=== PATIENT | male | born 1965 | race Caucasian/White ===

== ENCOUNTER → 2022-10-20 07:52 | Outpatient (REF) | payer OTHER, SELFPAY | LOC: WOUND 07:52 | PROVIDERS: ATTENDING PHYSICIAN Surgery; REFERRING PHYSICIAN Family Medicine | DX: L97.812 Non-pressure chronic ulcer of other part of right lower leg with fat layer exposed (principal); S81.03 Puncture wound without foreign body of knee; F19.10 Other psychoactive substance abuse, uncomplicated; F15.10 Other stimulant abuse, uncomplicated; K02.9 Dental caries, unspecified; X58.XXXS Exposure to other specified factors, sequela | CPT/HCPCS: 11042; 99202; 99204 ==

== ENCOUNTER 2023-09-19 21:40 | Emergency (ER) | payer OTHER, SELFPAY ==
[2023-09-19 21:44] VITALS: BP 122/78
[2023-09-19 22:19] VITALS: BMI 28.7
[2023-09-19 22:24] VITALS: BP 108/63
--- NOTE | 2023-09-20 00:25 | ED.MUSCINJ ---
HPI-Injury
General
Chief Complaint: Musculo-Skeletal Complaint
Source: patient
Exam Limitations: none
Time Seen by Provider: 09/19/23 22:12
Nursing documentation reviewed up to this point in time: agreed with
History of Present Illness-Injury
Is this injury a work related problem?: No
Is pt an associate of [facility]?: No
Initial Injury comments:
Patient states he tripped and fell on Thursday. Denies hitting his head. OCmplains of paint to left lat ankle and left knee. Brought self to ED for eval
Past History
Past History
ED Past Medical History: Other (IV methamphetamine abuse, cellulitis right lower extremity) and Other ([place] for PrEP)
ED Past Surgical History: Orthopedic (Arthroscopy Left knee 1992)
Social History
Tobacco: Former smoker
Alcohol: Occasional
Drug: IVDA (IV methamphetamine abuse)
Personal: Single (Common law marriage)
Living: alone
Employment: Employed
Family History
Family History: Other (Noncontributory)
Review of Systems
Review of Systems
Allergies reviewed?: Yes
All Other Systems: ROS reviewed and negative except as documented in HPI and ROS
Constitutional: Reports no symptoms
Musculoskeletal: Reports joint pain (Pain to left knee and left ankle.)
Skin: Reports no symptoms
Neurological: Reports no symptoms
Psychiatric: Reports no symptoms
Musculoskeletal Injury Exam
Musculoskeletal Injury Exam
Left Lateral Ankle:
Pain with Movement?: Moderate
Tender to palpation?: Moderate
Soft tissue swelling?: Mild
External deformity and angulation?: None
Joint effusion?: None
Contusion?: None
Hematoma-local bleeding into tissue?: None
Strain- Sprain- Tear (Connective tissue injury)?: Moderate
Crepitus with movement?: No
Joint instability?: No
Malalignment/deformity?: No
Range of motion: Limited
Distal skin color and temperature: normal-warm & good color
Capillary Refill: normal
Normal distal neurovascular exam?: Yes
Peripheral Pulses: posterior tibial (left): 3+ and dorsalis pedis (left): 3+
Left Knee:
Pain with Movement?: Mild
Tender to palpation?: Mild
Soft tissue swelling?: None
External deformity and angulation?: None
Joint effusion?: None
Contusion?: Moderate
Hematoma-local bleeding into tissue?: None
Strain- Sprain- Tear (Connective tissue injury)?: None
Crepitus with movement?: No
Joint instability?: No
Malalignment/deformity?: No
Range of motion: Full
Distal skin color and temperature: normal-warm & good color
Capillary Refill: normal
Normal distal neurovascular exam?: Yes
Phy Exam
General Physical Exam
General Presentation: well appearing and no apparent distress
General age: appears stated age
General Skin: warm and dry
General Habitus: normal
General Mental: alert
General Hydration: appears well hydrated
Musculoskeletal Exam
Musculoskeletal Exam: neuro vasc intact (No tenderness base of 5th, proximal tib fib. Achilles intact.)
Skin Exam
Skin Exam: normal color, warm/dry and no rash
Psychiatric Exam
Psychiatric Exam: normal mood/affect
Injury Course
Orders/Labs/Results
Orders:
Orders
09/19/23 21:48
CR Ankle - Left Min 3 Views Urgent
Comment:
Reason For Exam: twisted, injury
CR Knee - Left 4 Or More View* Urgent
Comment:
Reason For Exam: injury, pain
09/19/23 22:41
Ortho Boot Left- Treatment ONCE
Short or tall?: Tall
*Radiology
Radiology exam reviewed: radiology read reviewed
*Pulse Oximetry
Patient hypoxic: no
*Critical Care Note
Total Time (30-74mins, 75-104mins- exclusive of procedures): Not Applicable
ED Attending Note
-
Portions of this chart may have been created with voice recognition software.� Occasional wrong word or��sound alike� substitutions may have occurred due to the inherent limitations of voice recognition software.
Discharge Plan
Departure
Patient Disposition: Home (Routine Discharge)
Date of Disposition: 09/19/23
Time of Disposition: 22:41
Patient with high blood pressure during this ER visit?: No
Condition: Good
Covid-19: Not Applicable
Discharge Problem:
Ankle sprain, Knee sprain
Instructions: Ibuprofen, Using Cold for Pain, Ankle Sprain ED
Prescriptions:
No Action
mupirocin 2 % Ointment
1 applic topical DAILY Qty: 22 1RF
Rx Instructions:
Right arm
Dakin's Solution 0.125 % Solution
1 applic topical DAILY Qty: 473 0RF
doxycycline hyclate 100 mg Capsule
100 mg PO Q12 Qty: 20 0RF
oxycodone-acetaminophen 5-325 mg Tablet
1 tab PO Q4HPRN PRN (Reason: severe pain) Qty: 20 0RF
Referrals:
Mykel Bravo, [Family Provider] -
Jaspal Stratton MD [Active] - None (Follow up if your symptoms do not improve over the next week)
Interventions
Interventions:
*Risk Screen - Suicide Last Done: 09/19/23 21:44
*General Assessment Last Done: 09/19/23 21:44
*Neglect/Abuse Screening Last Done: 09/19/23 21:44
ED- Fall Risk Assessment Last Done: 09/19/23 22:21
*ED COVID-19 Vaccine History Last Done: 09/19/23 22:21
*Nursing Disposition Last Done: 09/19/23 23:19
ED-Musculoskeletal Assessment Last Done: 09/19/23 22:21
Discharge Date and Time
Discharge Date/Time: 09/19/23 23:20
Print Language: WALLISIAN
== END 2023-09-19 23:20 | disposition home or self-care (01) ==
LOC: EMR 21:40
PROVIDERS: EMERGENCY PHYSICIAN Emergency Medicine; FAMILY PHYSICIAN Family Medicine
DX: S93.402A Sprain of unspecified ligament of left ankle, initial encounter (principal); S83.92XA Sprain of unspecified site of left knee, initial encounter; W01.0XXA Fall on same level from slipping, tripping and stumbling without subsequent striking against object, initial encounter; Z87.891 Personal history of nicotine dependence
CPT/HCPCS: 99283; 73564; 73610

== ENCOUNTER 2024-01-16 03:37 | Inpatient (IN) | payer OTHER, SELFPAY ==
[2024-01-15 23:42] VITALS: BP 113/48
[2024-01-15 23:43] VITALS: BP 113/48
[2024-01-16] VITALS (38 sets, daily range): BP systolic 76–110; BP diastolic 48–73; BMI 27.3
[2024-01-16] MEDS: NSS 1000 IV ×2 (00:35→02:45)
[2024-01-16] MEDS: TORADOL 15 MG IV (00:47)
[2024-01-16 01:04] LABS: ALT (SGPT) 44 U/L (0-50); AST (SGOT) 58 U/L (17-59); Albumin 3.5 g/dl (3.5-5.0); Alkaline Phosphatase 82 U/L (38-126); Blood Urea Nitrogen 16 mg/dl (9-20); Calcium 8.4 mg/dl (8.4-10.2); Carbon Dioxide 23 mmol/L (22-30); Chloride 99 mmol/L (98-107); Estimated Creatinine Clearance 103 ml/min; Glucose 102 mg/dl (70-99); Potassium 3.8 mmol/L (3.5-5.1); Sodium 134 mmol/L (135-145); Total Bilirubin 0.4 mg/dl (0.2-1.3); Total Protein 6.2 g/dl (6.3-8.2); eGFR > 60.00
[2024-01-16 01:06] LABS: COVID-19 Antigen Negative (Negative)
[2024-01-16 01:09] LABS: Lactic Acid 1.1 mmol/L (0.7-2.0)
[2024-01-16 01:15] LABS: Troponin I < 0.012 ng/ml
[2024-01-16 01:21] LABS: Absolute Neutrophils -Man Diff 1.9 10^3/uL (1.4-6.5); Atypical Lymphocytes 7 %; Band Neutrophils 3 % (0-3); Hematocrit 35.5 % (39.0-52.0); Hemoglobin 12.7 g/dL (13.0-18.0); Lymphocytes 16 % (20-51); Mean Corp Hgb Conc. 35.8 g/dL (33.0-37.0); Mean Corpuscular Hgb 30.8 pg (27.0-31.0); Mean Corpuscular Volume 86.2 fL (80.0-94.0); Mean Platelet Volume 10.3 fL (7.4-10.4); Monocytes 4 % (2-9); Normal RBC Morphology Yes; Platelet Count 112 10^3/uL (130-400); Platelets Checked Yes; Red Blood Cell Count 4.12 10^6/uL (4.70-6.10); Red Cell Dist. Width 13.1 % (11.5-14.5); Segmented Neutrophils 70 % (42-75); White Blood Cell Count 2.7 10^3/uL (4.8-10.8)
[2024-01-16 01:22] LABS: Total Cells Counted 100
--- NOTE | 2024-01-16 01:30 | ED.GENMED ---
History of Present Illness
General
Chief Complaint: Fever
Source: patient
Exam Limitations: none
Time Seen by Provider: 01/15/24 23:56
Nursing documentation reviewed up to this point in time: agreed with
History of Present Illness
History of Present Illness:
Patient to ED with complaint of abdominal pain, headache, tingling in arms, pain to dorsum of both feet, poor appetite. States symptoms started approx 1 week ago. Denies any sick contacts. Temp on arrival 101. History of IVDA. Denies any recent
use. Brought to ED via EMS for eval.
Past History
Past History
ED Past Medical History: Other (IV methamphetamine abuse, cellulitis right lower extremity) and Other ([place] for PrEP)
ED Past Surgical History: Orthopedic (Arthroscopy Left knee 1992)
Social History
Tobacco: Former smoker
Alcohol: Occasional
Drug: IVDA (IV methamphetamine abuse)
Personal: Single (Common law marriage)
Living: alone
Employment: Employed
Family History
Family History: Other (Noncontributory)
Review of Systems
Review of Systems
Allergies reviewed?: Yes
All Other Systems: ROS reviewed and negative except as documented in HPI and ROS
Constitutional: Reports fever and fatigue
EENT: Reports no symptoms
Respiratory: Reports no symptoms
Cardiac: Reports no symptoms
ABD/GI: Reports abdominal pain, nausea and anorexia
Musculoskeletal: Reports other (Pain to dorsum of both feet)
Skin: Reports no symptoms
Neurological: Reports headache
Psychiatric: Reports no symptoms
Phy Exam
General Physical Exam
General Presentation: mild distress
General age: appears older than age
General Skin: warm and dry
General Habitus: normal
General Mental: alert
General Hydration: dry mucous membranes
Cardiovascular Exam
Cardiovascular Exam: regular rate/rhythm and no edema
Pulmonary Exam
Pulmonary Exam: lungs clear and no respiratory distress
Gastrointestinal Exam
Gastrointestinal Exam: normal bowel sounds, soft, no organomegaly, non distended and no cva tenderness
Palpation: generalized: Mild tenderness
Neurological Exam
Neurological Exam: alert, oriented x3, CN II-XII intact, no motor deficits, no sensory deficits and speech normal
Musculoskeletal Exam
Musculoskeletal Exam: full ROM, neuro vasc intact and other
Skin Exam
Skin Exam: normal color, warm/dry and no rash
Psychiatric Exam
Psychiatric Exam: normal mood/affect
Sepsis
Sepsis Screening
Sepsis Assessment: Sepsis
Sepsis Screen
Sepsis Screen: Sepsis
Date: 01/16/24
Time: 22:27
Course
Orders/Labs/Results
Orders:
Orders
01/15/24 23:45
Complete Blood Count/With Diff Urgent
Comprehensive Metabolic Panel Urgent
Troponin I Urgent
01/15/24 23:46
EKG- Treatment ONCE
01/16/24 00:20
0.9% Sodium Chloride 1000 ml [Nss] 1,000 ml IV BOLUS
01/16/24 00:21
Ketorolac [Toradol] 15 mg IV NOW STA
01/16/24 00:36
COVID-19 Antigen Urgent
Source: Nasal Swab
Lactic Acid Urgent
Manual Differential Urgent
Influenza A+B Rapid Molecular Urgent
LEO Source: Nasal Swab
Specimen Description:
01/16/24 00:39
CT Abd/pelvis W Iv Cont Urgent
Comment:
Reason For Exam: diffuse pain, vomiting
01/16/24 01:25
CR Chest - 2 Views Urgent
Comment:
Reason For Exam: fever, cough
01/16/24 01:26
Acetaminophen 1000MG/100Ml [Ofirmev] 1,000 mg in 100 ml IV ONCE
Acetaminophen IV Indication:: ED Narcotic Naive Pt-ONCE
01/16/24 02:24
Blood Culture Urgent
LEO Source: Blood/Venous
Specimen Description:
01/16/24 02:45
0.9% Sodium Chloride 1000 ml [Nss] 1,000 ml IV BOLUS
01/16/24 02:52
Procalcitonin Urgent
PCT Algorithmm Indication: Sepsis
01/16/24 02:54
Blood Culture Urgent
LEO Source: Blood/Venous
Specimen Description:
01/16/24 03:06
Admit/Transfer Patient As Directed
Co-Sign Provider:
Level of Care: Inpatient admission
Assign to:: IMU- Intermediate Care
Physician / Group: Andrea
Diagnosis: Fever, Sepsis
Reason for Hospitalization: Fever, Sepsis
Expected length of stay greater than two midnights?: Yes
ELOS- Estimated Length of Stay in days: 4
I certify the patient meets the requirements for IP care: Yes
PRN Pain Medication Management As Directed
May give lesser potent ordered pain med per pt: Yes
preference::
Protocol:: Medication orders for pain may be administered in a
manner that supports deferring to patient preference
when the pt is:
- Requesting an ordered lesser potent pain medication.
Least to most potent pain medications are defined
as: acetaminophen < NSAID < tramadol < opioids
(morphine, oxycodone, hydromorphone).
- Requesting a lesser dose of the same medication IF
ORDERED.
- Requesting a less intrusive route of administration
if both routes are prescribed by the provider (PO <
IV).
01/16/24 03:07
Code Status As Directed
Resuscitation Status: Full Code
01/16/24 03:13
0.9% Sodium Chloride 500 ml [Nss] 500 ml IV BOLUS
01/16/24 03:56
NORepinephrine 4 MG/250 ML [Levophed] 4 mg in 250 ml IV PER PROTOCOL
Initial dose in mcg/min, then titrate:: 4
Titrate to keep:: MAP > 65 mmHg
Titrate by mcg/min:: 1-2 mcg/min
Frequency of titrations (minutes):: 5
Maximum dose in ICU in mcg/min:: 30
Maximum dose in IMU in mcg/min:: 8
Maximum dose in IVU in mcg/min:: 4
Begin to taper infusion when:: Remained at goal for 4hrs
Taper by mcg/min:: 1-2 mcg/min
Frequency of taper (minutes) if patient maintains goal:: 30
Taper to off?: Yes
If infusion off & no longer maintaining goal:: Contact Provider
01/16/24 04:00
Cefepime HCl [Maxipime] 2,000 mg IV Q8H
Lactated Ringers [Lr] 1,000 ml IV 150 mls/hr
01/16/24 05:32
Acetaminophen [Tylenol] 650 mg PO Q4HPRN PRN
HYDROmorphone [Dilaudid] 0.5 mg IV Q4HPRN PRN
Ondansetron Injectable [Zofran] 4 mg IV Q6HPRN PRN
01/16/24 05:32
Echo 2D MMode Doppler [Echo 2D MMode Color/Doppler] Routine
Reason for Study: IVDA, Bacteremia
Consult Notification Routine
Specialty to Notify: Infectious Disease
Date consulting provider notified: 01/16/24
Time consulting provider notified: 07:15
Notified:: Other
Comment: tiger text
INFECTIOUS DISEASE CONSULT Routine
Consulting Provider: Radha Holm
Was physician already notified: No
Reason for consult: Fever, IVDA
Stool Culture Routine
LEO Source: Feces/Stool
Specimen Description:
Activity As Directed
Activity Level: Ambulate
With Assistance
Bladder Scan As Directed
Follow Bladder Retention/Intermittent Cath Algorithm?: Yes
PRN if no void in __ hours: 6
Frequency: Per Retention Algorithm
If Bladder Scan Result >: 400
then:: Straight cath
EKG with chest pain [ECG as needed] As Directed
ECG as needed for:: Chest Pain
I/O [Intake/ Output] As Directed
Frequency: Per unit guidelines
Orthostatic Vital Signs As Directed
Orthostatic VS Frequency: BID
Pneumatic Compression Sleeves As Directed
Type: Knee high
Straight Cath As Directed
Frequency: Per Retention Algorithm
Additional Instructions: straight cath as needed per acute urinary retention algorithm for 24 hrs
Additional Instructions: for bladder scan greater than 400 mL
Vital Signs As Directed
Frequency: Per unit guidelines
Weight As Directed
Frequency: Daily
Oxygen Therapy [O2 Therapy] [RESP] Routine
Titrate/Wean O2 to maintain O2 sat greater than (%): 94
DX Deep Vein Thrombosis Video Routine
01/16/24 05:40
Complete Blood Count/No Diff IN AM
HIV 4th Generation [HIV Combo] Routine
TSH Reflex To Free T4 Routine
01/16/24 Breakfast
Clear Liquid
At Your Request: Full Participation
Abnormal Lab Results
01/16/24
00:36
WBC 2.7 L 10^3/uL
(4.8-10.8)
RBC 4.12 L 10^6/uL
(4.70-6.10)
Hgb 12.7 L g/dL
(13.0-18.0)
Hct 35.5 L %
(39.0-52.0)
Plt Count 112 L 10^3/uL
(130-400)
Lymphocytes (Manual) 16 L %
(20-51)
Sodium 134 L mmol/L
(135-145)
Glucose 102 H mg/dl
(70-99)
Total Protein 6.2 L g/dl
(6.3-8.2)
01/16/24 00:36
01/16/24 00:36
Vital Signs
Initial and Last Documented VS:
Initial Vital Signs
BP
113/48
01/15/24 23:42
Last Documented Vital Signs
Temp Pulse Resp BP Pulse Ox
98.3 F 74 17 98/66 95
01/16/24 19:00 01/16/24 18:15 01/16/24 18:15 01/16/24 18:00 01/16/24 18:15
MDM/Problems Addressed
Differential Diagnosis Includes:
Patient to ED with complaint of tingling in arms, abdominal pain, nausea, pain to dorsum joby feet, headache. Symptoms started 1 week ago. States he is homeless but has been staying with a friend for the past few nights. History of IVDA, last use
'days ago'. No evidence of cellulitis, abscess noted on exam. Temp on arrival to ED 101. Given IV toradol and ofirmev. Hypotensive, fluid resuscitation continuing. Labs reviewed. Pancytopenia noted. Lactic normal. Blood cultures obtained,
results pending. CXR NAD. CT abd/pelvis Vision read: 'No specific findings to accoun for patients abd. pain'. Tiny low density lesions noted on spleen, most likely small cysts, less likely microabscesses or other masses. He reports improvement in
comfort after toradol and ofirmiv. Case discussed with Dr. Yi. In light of his IVDA history will admit for fever of unknown origing, SERS, pancytopenia. Will hold off on antibiotics pending culture result.
*Radiology
Radiology exam reviewed: radiology read reviewed
*Pulse Oximetry
Patient hypoxic: no
*Critical Care Note
Total Time (30-74mins, 75-104mins- exclusive of procedures): Not Applicable
ED Attending Note
-
Portions of this chart may have been created with voice recognition software.� Occasional wrong word or��sound alike� substitutions may have occurred due to the inherent limitations of voice recognition software.
Discharge Plan
Departure
Patient Disposition: Admit
Date of Disposition: 01/16/24
Time of Disposition: 02:30
Presentation/result/management discussed w/ accepting MD/DO: Hospitalist
Patient with high blood pressure during this ER visit?: No
Condition: Fair
Covid-19: Negative COVID-19
Discharge Problem:
Fever of unknown origin, Pancytopenia
Interventions
Interventions:
*General Assessment Last Done: 01/15/24 23:43
*Neglect/Abuse Screening Last Done: 01/15/24 23:43
ED- Fall Risk Assessment Last Done: 01/15/24 23:43
*ED COVID-19 Vaccine History Last Done: 01/15/24 23:43
*Nursing Disposition Last Done: 01/16/24 05:32
ED- Neurological Assessment Last Done: 01/15/24 23:50
ED-Skin Assessment Last Done: 01/15/24 23:50
Discharge Date and Time
Discharge Date/Time: 01/16/24 05:00
[2024-01-16] MEDS: OFIRMEV 100 IV (02:13)
--- NOTE | 2024-01-16 03:13 | HPS.HSE ---
Family Physician
-
Family Physician: PHYSICIAN PRIVATE
Chief Complaint
-
Chills, Nausea, Abd Pain
History of Present Illness
Patient is a 58y M with PMH significant for IVDA and prior MRSA skin infection who presents to ED complaining of chills, nausea, abdominal pain and paresthesias for about one week. Patient described occasional shaking chills at home. He has not
checked his temperature. He reports diffuse abdominal discomfort and nausea. No emesis, watery diarrhea, bloody stools or urinary symptoms.
Patient denies any other focal complaints including cough, dyspnea, etc.
He denies any recent travel or sick contacts.
Patient is a chronic substance abuser and admits to using methamphetamine by both inhaled and IV / skin popping methods.
His last such use was about 1 week ago.
Medical History
Past Medical History
Past Medical History: Reports Other
Additional Past Medical History:
Substance Use Disorder
MRSA Infection
Past Surgical History: Reports Other
Additional Past Surgical History:
Left Knee Arthroscopy
I&D RLE (MRSA Abscess)
Social History
Tobacco: Former Smoker (Quit smoking 14 years ago. Approx 20 pack years total use.)
Alcohol: Occasional (Rarely.)
Drug: Other (Occasional use of methamphetamine (inhaled and IV / skin popping) - last use 1 week ago.)
Family History
Family History: Other (Mother: DM)
Allergies / Home Medications
Allergies reflects when Allergies were last updated in [facility].
Home Medications with original date entered in [facility]
Allergy/Medication List:
Allergies
Allergy/AdvReac Type Severity Reaction Status Date / Time
No Known Allergies Allergy Verified 01/16/24 00:00
Home Medications
No Meds [No Current Medications] 01/16/24
Review of Systems
-
History Source: Patient
A 12 point ROS was completed and negative except as noted: Yes
Constitutional: Reports Fatigue and Chills
EENT: Denies Sore Throat or Runny Nose
Respiratory: Denies Cough or Trouble Breathing
Cardiac: Denies Chest Pain or Palpitations
Abdomen/GI: Reports Abdominal Pain, Nausea, Diarrhea and Anorexia; Denies Vomiting, Constipated, Bloody Stools or Black Stools
: Denies Dysuria, Frequency or Flank Pain
Musculoskeletal: Denies Joint Pain or Edema
Neurological: Denies Dizzy or Headache
Psych: Denies Depression or Anxiety
Physical Exam
Vital Signs
Vital Signs
Temp Pulse Resp BP Pulse Ox
101.0 F H 75 11 85/57 96
01/15/24 23:43 01/16/24 03:01 01/16/24 03:01 01/16/24 03:01 01/16/24 03:01
Physical Exam
General: Other (58y M in no acute distress.)
HEENT: Moist mucous membranes and PERRLA
Respiratory: Other (Scattered rales without wheezes / focal rhonchi.)
Cardiac: S1/S2 and Regular Rhythm; No Murmur
GI: Soft, Non Tender, Non Distended and Normal Bowel Sounds
Musculoskeletal: No Clubbing, No Cyanosis and No Edema
Neuro: AO x 3
Laboratory Results
-
01/16/24 00:36
01/16/24 00:36
Laboratory Results
Lactic Acid 1.1 mmol/L (0.7-2.0) 01/16/24 00:36
Total Bilirubin 0.4 mg/dl (0.2-1.3) 01/16/24 00:36
AST 58 U/L (17-59) 01/16/24 00:36
ALT 44 U/L (0-50) 01/16/24 00:36
Alkaline Phosphatase 82 U/L (38-126) 01/16/24 00:36
Troponin I < 0.012 ng/ml 01/16/24 00:36
Impression/Plan
-
A/P: Patient is a 58y M with PMH significant for IVDA / substance abuse and prior MRSA infection who presents to ED complaining of chills, nausea and abdominal pain.
Fever / Sepsis
Mild Thrombocytopenia secondary to the above
- Admit for further evaluation and treatment.
- Patient presents with fever to 101 and leukopenia (2.7).
- He is hypotensive in the ED (though it is noted that he 'runs low' based on prior values and patient's own history).
- Continue / complete 30cc/kg sepsis fluid bolus.
- Add pressor support if needed following this to maintain MAP > 65.
- No evident source at this time - though one must suspect bacteremia +/- MRSA given history of IVDA and prior MRSA infection.
- CXR and CT A/P done in the ED are essentially unremarkable.
- COVID and influenza are negative.
- Follow-up results of blood cultures.
- Check Echo.
- Follow fever curve. Monitor for any new / focal symptoms or complaints.
- ID evaluation for additional recommendations.
- Repeat HIV status (was negative here in 09/2022).
Substance Use Disorder
- Chronic methamphetamine use in multiple forms.
- Last use about one week prior to admission.
DVT Prophylaxis: SCDs
Code Status: Full
[2024-01-16] MEDS: NSS 500 IV (03:30)
[2024-01-16 03:32] LABS: Procalcitonin 0.05 ng/ml (0.0-0.25)
[2024-01-16] MEDS: MAXIPIME 2000 MG IV ×3 (04:15→20:10)
[2024-01-16] MEDS: FLUSH (NSS) 1 FLUSH IV (04:16)
[2024-01-16] MEDS: STERILE WATER FOR INJECTION 10 ML IV ×3 (04:17→20:10)
[2024-01-16] MEDS: LR 1000 IV ×2 (04:23→13:16)
[2024-01-16] MEDS: LEVOPHED 250 IV (05:42)
[2024-01-16 05:56] LABS: Hematocrit 30.8 % (39.0-52.0); Hemoglobin 10.7 g/dL (13.0-18.0); Mean Corp Hgb Conc. 34.7 g/dL (33.0-37.0); Mean Corpuscular Hgb 30.3 pg (27.0-31.0); Mean Corpuscular Volume 87.3 fL (80.0-94.0); Mean Platelet Volume 9.8 fL (7.4-10.4); Platelet Count 82 10^3/uL (130-400); Red Blood Cell Count 3.53 10^6/uL (4.70-6.10); Red Cell Dist. Width 13.3 % (11.5-14.5); White Blood Cell Count 1.9 10^3/uL (4.8-10.8)
[2024-01-16] MEDS: VANCOCIN 540 MG IV (06:07)
[2024-01-16 06:17] LABS: ALT (SGPT) 37 U/L (0-50); AST (SGOT) 45 U/L (17-59); Albumin 2.7 g/dl (3.5-5.0); Alkaline Phosphatase 62 U/L (38-126); Blood Urea Nitrogen 13 mg/dl (9-20); Calcium 7.2 mg/dl (8.4-10.2); Carbon Dioxide 21 mmol/L (22-30); Chloride 104 mmol/L (98-107); Direct Bilirubin 0.2 mg/dl (0.0-0.4); Estimated Creatinine Clearance 118 ml/min; Glucose 91 mg/dl (70-99); Potassium 3.6 mmol/L (3.5-5.1); Sodium 136 mmol/L (135-145); Total Bilirubin 0.4 mg/dl (0.2-1.3); Total Protein 5.2 g/dl (6.3-8.2); eGFR > 60.00
[2024-01-16 06:44] LABS: TSH Reflex To Free T4 2.85 uIU/ml (0.47-4.68)
--- NOTE | 2024-01-16 06:55 | PTCARENOTE ---
Patient received in room 3372 via stretcher. The patient is drowsy, AAOx3 and able to make his needs known. Complains of numbness to his left hand that is 'worse' than before. Pt stated that the numbness is new to this admission. Complains of 6 or 7
abdominal pain that feels cramps/aching. The patient stated that he typically doesn't take medications. Plan of care for the remainder of the shift reviewed with the patient. Admission assessment as documented. Patient stated that his living
situation is 'up in the air' and 'complicated' when asked about his emergency contact. Pupils are +2 and reactive. MAEx4- with good strength on all extremities. Pulses are palpable. Sinus rhythm on the monitor. Levophed initiated at 2 mcg/min (7.5
ml/hr) for MAP 62. Clear breath sounds throughout. Shallow respirations. SpO2 at 95% on room air. Bowel sounds are audible. Pt denies need to void. The patient has a pencil sized healing scabs to his left great toe, callus on the bottom of the left
foot, and dried skin to his right lateral knee. KUMAR Solano paged at the bedside regarding the patient's numb hand. All needs are within reach.
--- NOTE | 2024-01-16 07:45 | W.PN.HOSP.TC ---
Today's Communication/Plan
-
Titrate pressors
Advance diet as tolerated
Check lipase
UDS
Continue antibiotics
Await cultures
ID consult
Assessment / Plan
Assessment / Plan
Gen-AAOx3, NAD
HEENT-NC, AT, anicteric, clear oral mm
Neck-supple
CV-reg, no M, +S1/S2
Lungs-clear B/L
Abd-soft, nontender, mildly distended
Ext-no edema
Musculoskeletal-no cyanosis, clubbing
Skin-warm and dry
Neuro-grossly non-focal
Psych-calm, cooperative
Septic shock -source unclear but rule out bacteremia related to IV drug abuse. Blood cultures pending, on empiric broad-spectrum antibiotics, cefepime and vancomycin. ID consulted. On low-dose Levophed. Continue IV fluids. Chest x-ray and CT
abdomen/pelvis completed, report pending. No localizing signs or symptoms of infection currently.
Check lipase level.
Substance abuse -known history of IV drug abuse, inhalation use of methamphetamine. Check UDS.
Will need warm handoff consult when medically stable.
Pancytopenia -etiology unclear but could be due to sepsis, etc. HIV pending.
Hyponatremia -present on admission, improved.
Full code
Anticipated Discharge: > 48 hours
Subjective/Interval History
-
Date of Service: January 16, 2024
Patient seen and examined. Complaining of abdominal pain. Complaining of thirst and hunger.
Objective Data
-
Labs:
Laboratory Results
01/16/24 01/16/24
00:36 05:40
WBC 2.7 L 1.9 L*
Hgb 12.7 L 10.7 L
Hct 35.5 L 30.8 L
Plt Count 112 L 82 L D
Sodium 134 L 136
Potassium 3.8 3.6
Chloride 99 104
Carbon Dioxide 23 21 L
BUN 16 13
Creatinine 0.8 0.7
Glucose 102 H 91
Calcium 8.4 7.2 L
Total Bilirubin 0.4 0.4
AST 58 45
ALT 44 37
Alkaline Phosphatase 82 62
Vital Signs:
Vital Signs
Temp Pulse Resp BP Pulse Ox
99.0 F 73 13 81/58 96
01/16/24 07:00 01/16/24 05:17 01/16/24 05:17 01/16/24 05:17 01/16/24 05:17
Review of Systems
-
History Source: Patient
All other systems: Reviewed and negative
[2024-01-16] MEDS: NSS (PRESERVATIVE FREE) 10 ML IV (08:15)
[2024-01-16] MEDS: PROTONIX IV 40 MG IV (08:15)
[2024-01-16 08:23] LABS: Lipase 80 U/L (23-300)
--- NOTE | 2024-01-16 09:39 | PHA.VAN.IN ---
Assessment
- Assessment
Renal Function: Appears similar to baseline
Maximum Temperature: 101 - 01/14 23:43
Concomitant Antimicrobials: cefepime
- Previous Dosing Experience
Previous Regimen: dosed by randoms level 09/2022 due to elevated SCr
Patient's SCR is: Decreased compared to previous dosing experience
Patient's weight is: Similar to previous dosing experience
AUC Dosing Plan
- Dosing Variables
Dosing Weight (kg): 84
Dosing CrCl (ml/min): 100
Vd coefficient (L/kg): 0.7
- Empiric Dosing
Initial / Loading Dose: 2000 mg - 01/15 ~0600
Maintenance Regimen: 1000 mg q12h - to start 1800 tonight
Estimated AUC (mcg*h/mL): 406
Estimated Peak (mcg*h/mL): 26.2
Estimated Trough (mcg/ml): 10
Estimated Half Life (H): 7.9
- Monitoring
No levels ordered at this time: consider levels when pt nears steady state
Pharmacokinetics Vancomycin I
- -
Patient Age: 58
Patient Sex: Male
Vancomycin Day #: 1
Indication: Bacteremia
Requesting Provider: Andrea
Height / Weight:
Height 5 ft 9 in
Actual Weight 83.8 kg
Pertinent Past Medical History: IVDA
- Vital Signs / Lab Results
Temp Pulse Resp BP Pulse Ox
99.0 F 74 16 89/62 96
01/16/24 07:00 01/16/24 08:00 01/16/24 08:00 01/16/24 08:00 01/16/24 08:00
Lab Results - Hematology
01/16/24 01/16/24
00:36 05:40
WBC 2.7 L 1.9 L*
Band Neutrophils 3
Lab Results - Chemistry
01/16/24 01/16/24
00:36 05:40
BUN 16 13
Creatinine 0.8 0.7
Estimated Creat Clear 103 118
Albumin 3.5 2.7 L
01/16/24
00:36
Lactic Acid 1.1
Microbiology Results
01/16/24 00:36 Influenza Types A & B (DEMETRA) - Final
Nasal Swab Negative for Influenza A & B, NAAT
Negative results must be combined with clinical observations
and patient history.
Nucleic Acid Amplification test (NAAT)performed on the
[employer] platform.
[2024-01-16 10:32] LABS: Amphetamines Negative (Negative); Barbiturates Negative (Negative); Benzodiazepines Negative (Negative); Buprenorphine Negative (Negative); Cocaine Negative (Negative); Marijuana Negative (Negative); Methadone Negative (Negative); Methamphetamines Positive (Negative); Opiates Negative (Negative); Phencyclidine Negative (Negative); Tricyclic Antidepressants Negative (Negative)
[2024-01-16 11:07] LABS: Fentanyl, Urine Negative (Negative)
--- NOTE | 2024-01-16 12:12 | CON.ID ---
Consultation
-
Date/Time Consultation Requested: January 16, 2024 0532
Date/Time Consultation Performed: January 16, 2024 1215
Requesting Provider: Dr. Andrea Demarco
Performing Provider: Dr. Radha Holm
Reason for Consultation: Fever, IV drug user
Chief Complaint / Past History
Chief Complaint
Fever
History of Present Illness
58-year-old male with history of IV drug use/skin popping methamphetamine last use about 2 weeks ago who presented to the ER last night due to 1 week history of fever. He reports not feeling well for about a week with his subjective fevers, chills,
diffuse abdominal pain and nausea. He feels weak. No vomiting or diarrhea. No urinary symptoms. Has mild headache. No sinus congestion or sore throat. Chronic back pain stable. No ill contacts. No travel. No known tick exposure. He has 2
dogs at home. In the ED temperature 101, leukopenia white count 2.7, thrombocytopenic. Blood cultures obtained in the was started on vancomycin and cefepime. He feels slightly improved today. No wounds. He does not share needles. He always
uses fresh needle and wipe his skin with alcohol prior to skin popping. He does not lick the needle.
Past History
Additional Past Medical History:
IVDU methamphetamine (skin popper)
History of MRSA right knee wound infection status post debridement 2022
left knee arthroscopic surgery
Allergy History:
No Known Allergies Allergy (Verified 01/16/24 00:00)
Medications Reviewed: Yes
Current Antibiotics:
Cefepime
Vancomycin
Social History
Tobacco: Former Smoker
Alcohol: Occasional
Drug: IVDA
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
Family History
Family History: Not Pertinent
Review of Systems
Review of Systems
General: Fever, Chills and Change in Appetite
HEENT: Headache; Negative Sinus Problems or Pharyngitis
Cardiovascular: Negative Chest Pain or Dyspnea
Respiratory: Negative Dyspnea or Cough
Gasteroenterology: Nausea; Negative Vomiting or Diarrhea
Genital / Urological: Negative Dysuria or Flank Pain
Endocrine: Weakness and Fatigue
Musculoskeletal: Negative Arthralgias
Neurological: Negative Dizziness
All systems: All other systems were reviewed and were negative
Vital Signs
Temp Pulse Resp BP Pulse Ox
98.5 F 70 15 91/67 99
01/16/24 11:00 01/16/24 11:30 01/16/24 11:30 01/16/24 11:23 01/16/24 11:30
Selected Entries
01/15/24
23:43
Temp 101.0 F H
Physical Exam
Physical Exam
Constitutional: No Acute Distress and Comfortable
Eyes: No Conjunctival Hemorrhage and Sclera Anicteric
Cardiovascular: Regular Rate and S1/S2
Pulmonary: Clear
Gastrointestinal: Soft, Non Tender, Non Distended, Normal Bowel Sounds and Decreased Bowel Sounds
Genito-Urinary: Negative CVA Tenderness
Extremities: Negative Splinter Hemorrhage or Janeway Lesions
Musculoskeletal: Negative Joint Swelling, Joint Effusion or Spinal Tenderness
Neurological: AO x 3; Negative Meningeal Signs
Lab / Diagnostic Study Results
01/16/24 05:40
01/16/24 05:40
Total Counted 100 01/16/24 00:36
Abs Neuts (Manual) 1.9 10^3/uL (1.4-6.5) 01/16/24 00:36
Segmented Neutrophils 70 % (42-75) 01/16/24 00:36
Band Neutrophils 3 % (0-3) 01/16/24 00:36
Lymphocytes (Manual) 16 % (20-51) L 01/16/24 00:36
Lactic Acid 1.1 mmol/L (0.7-2.0) 01/16/24 00:36
Procalcitonin 0.05 ng/ml (0.0-0.25) 01/16/24 02:52
Microbiology Results
Micro:
01/16/24 02:54 Blood Culture - Pending
Blood/Venous
01/16/24 02:24 Blood Culture - Pending
Blood/Venous
01/16/24 00:36 Influenza Types A & B (DEMETRA) - Final
Nasal Swab Negative for Influenza A & B, NAAT
Negative results must be combined with clinical observations
and patient history.
Nucleic Acid Amplification test (NAAT)performed on the
[employer] NOW platform.
01/16/24 CT a/p: No acute findings in the abdomen or pelvis.Hepatic steatosis.Punctate nonobstructing stone in the inferior pole the right kidney.
01/16/24 CXR: neg
Assessment / Plan
# Fever
# Pancytopenia
# IVDU
#MRSA colonized
-CXR neg. CT a/p neg
- await blood cx's
- Tickborne disease work-up: Babesia smear, anaplasma, ehrlichia, lyme serology
- Continue Vancomycin and cefepime for now.
--- NOTE | 2024-01-16 14:26 | PTCARENOTE ---
Rec'd pt at 0700. Pt AAOx3, follows commands, RAMIREZ. IMU status. Monitor SR with PVC/PAC. SBP 80-90's on Levophed 2mcg/min to keep MAP >65. Vdg yellow urine via urinal, UDS sent. Diet advanced to regular, tolerating. No c/o pain.
[2024-01-16 15:24] LABS: HIV Combo Reactive (Negative)
[2024-01-16] MEDS: TYLENOL 650 MG PO (16:01)
--- NOTE | 2024-01-16 16:22 | CHAP ---
Mr. Moore said, 'I'm here,' when I asked how he's doing. He shared thoughts only briefly. Emotional support provided, along with assurance of our on-going availability.
[2024-01-16] MEDS: VANCOCIN 200 IV (18:07)
[2024-01-16] MEDS: LOVENOX SC (18:08)
--- NOTE | 2024-01-16 20:32 | PTCARENOTE ---
Handoff report received from off going RN. Patient received in bed, arouses to verbal command. AAOx3 and able to make his needs known. Plan of care for the shift reviewed with the patient. MAEx4. Sinus rhythm on the monitor. Levophed at 2 mcg/min
for MAP>65. LR at 100 ml/hr.Clear breath sounds. Patient declines mouth care. All needs are within reach. Call de la rosa is at the bedside.
[2024-01-17] VITALS (31 sets, daily range): BP systolic 82–125; BP diastolic 43–73; PULSE 81–90; BMI 27.6
--- NOTE | 2024-01-17 00:22 | PTCARENOTE ---
Patient reassessed. No changes. Remains on Levophed gtt at 2 mcg.
[2024-01-17] MEDS: TYLENOL 650 MG PO ×2 (03:58→19:24)
[2024-01-17] MEDS: MAXIPIME 2000 MG IV (03:58)
[2024-01-17] MEDS: STERILE WATER FOR INJECTION 10 ML IV (03:58)
--- NOTE | 2024-01-17 04:05 | PTCARENOTE ---
Patient reassessed. Tylenol administered for headache. Labs drawn and sent. Patient cleansed with CHG wipes. linens changed. All needs are within reach.
[2024-01-17 04:15] LABS: Hematocrit 32.9 % (39.0-52.0); Hemoglobin 11.4 g/dL (13.0-18.0); Mean Corp Hgb Conc. 34.7 g/dL (33.0-37.0); Mean Corpuscular Hgb 30.6 pg (27.0-31.0); Mean Corpuscular Volume 88.4 fL (80.0-94.0); Mean Platelet Volume 10.1 fL (7.4-10.4); Platelet Count 114 10^3/uL (130-400); Red Blood Cell Count 3.72 10^6/uL (4.70-6.10); Red Cell Dist. Width 13.6 % (11.5-14.5); White Blood Cell Count 3.2 10^3/uL (4.8-10.8)
[2024-01-17 04:39] LABS: ALT (SGPT) 52 U/L (0-50); AST (SGOT) 57 U/L (17-59); Alkaline Phosphatase 74 U/L (38-126); Blood Urea Nitrogen 9 mg/dl (9-20); Calcium 7.8 mg/dl (8.4-10.2); Carbon Dioxide 23 mmol/L (22-30); Chloride 107 mmol/L (98-107); Estimated Creatinine Clearance > 125 ml/min; Glucose 103 mg/dl (70-99); Sodium 138 mmol/L (135-145); Total Bilirubin 0.3 mg/dl (0.2-1.3); Total Protein 5.6 g/dl (6.3-8.2); eGFR > 60.00
[2024-01-17 04:42] LABS: Platelets Checked Yes; Segmented Neutrophils 71 % (42-75)
[2024-01-17 04:43] LABS: Anisocytosis 1+; Atypical Lymphocytes 6 %; Eosinophils 1 % (0-6); Lymphocytes 16 % (20-51); Monocytes 6 % (2-9); Normal RBC Morphology No; Poikilocytosis 1+; Schistocytes Occasional; Total Cells Counted 100
[2024-01-17] MEDS: VANCOCIN 200 IV (06:26)
--- NOTE | 2024-01-17 07:53 | W.PN.HOSP.TC ---
Today's Communication/Plan
-
Await HIV differentiation assay
Await blood cultures
Tickborne disease labs
Wean Levophed off
Assessment / Plan
Assessment / Plan
Gen-AAOx3, NAD
HEENT-NC, AT, anicteric, clear oral mm
Neck-supple
CV-reg, no M, +S1/S2
Lungs-clear B/L
Abd-soft, nontender, mildly distended
Ext-no edema
Musculoskeletal-no cyanosis, clubbing
Skin-warm and dry
Neuro-grossly non-focal
Psych-calm, cooperative
Septic shock -source unclear but rule out bacteremia related to IV drug abuse. 1 out of 2 blood cultures positive for gram-positive cocci in clusters, possibly contamination. Await final results. Continue antibiotics for now. Infectious disease
following. Still on Levophed 1 mcg, wean to off as able. Baseline blood pressure runs low according to patient.
ID sat 12 point serology for tickborne diseases, Babesia smear.
Positive HIV combination assay -will need confirmatory antibody differentiation immunoassay. Did not discuss preliminary test results with patient, need confirmation first.
Substance abuse -known history of IV drug abuse, inhalation use of methamphetamine. Urine drug screen positive for methamphetamines.
Will need warm handoff consult when medically stable.
Pancytopenia -etiology unclear but could be due to sepsis, etc. Counts are slowly improving.
Hyponatremia -present on admission, improved.
Full code
Anticipated Discharge: > 48 hours
Subjective/Interval History
-
Date of Service: January 17, 2024
Patient seen and examined. Less abdominal pain. No complaints.
Objective Data
-
Labs:
Laboratory Results
01/17/24 01/17/24
03:48 03:49
WBC 3.2 L
Hgb 11.4 L
Hct 32.9 L
Plt Count 114 L D
Sodium 138
Potassium 4.0
Chloride 107
Carbon Dioxide 23
BUN 9
Creatinine 0.6 L
Glucose 103 H
Calcium 7.8 L
Total Bilirubin 0.3
AST 57
ALT 52 H
Alkaline Phosphatase 74
Vital Signs:
Vital Signs
Temp Pulse Resp BP Pulse Ox
98.1 F 75 23 99/69 94
01/17/24 07:36 01/17/24 07:30 01/17/24 07:30 01/17/24 07:00 01/17/24 07:30
I&O
01/16/24 01/17/24 01/18/24
06:59 06:59 06:59
Intake Total 4476.3 / 4476.3
Output Total 3875 / 3875
Balance 601.3 / 601.3
Review of Systems
-
History Source: Patient
All other systems: Reviewed and negative
[2024-01-17] MEDS: PROTONIX IV 40 MG IV (07:54)
[2024-01-17] MEDS: NSS (PRESERVATIVE FREE) 10 ML IV (07:54)
--- NOTE | 2024-01-17 08:28 | W.PN.ID1 ---
Date of Service
Date of Service: January 17, 2024
Today's Communication
See below.
Assessment / Plan
# GPC bacteremia 1 of 2 sets
# MRSA colonized
- await identification of GPC clusters in bcx.
-Repeat blood cultures
-Continue Vancomycin for now.
# Pancytopenia
# Mild transaminitis
-Tickborne disease work-up: Babesia smear, anaplasma, ehrlichia, lyme serology pending
- Start empiric doxycycline
-DC cefepime
# Suspect HIV
# IVDU/skin popper
# High risk sexual behavior
- Preliminary HIV screen turned reactive, awaiting confirmation.
(09/29/2022 HIV screen negative).
- Risk factors: Pt is bisexual with multiple partners without barrier protection use. Also IVDU.
- Informed patient of preliminary results, awaiting differentiation/confirmation.
- Ordered HIV viral PCR in am (regardless positive or negative HIV confirmation). Check CD4 count
#Fever - resolving
-CXR neg. CT a/p neg, UA neg
Chief Complaint
-: Fever
Subjective / Review of Systems
Feels the same with malaise, nausea, abdominal pain.
Vital Signs / Physical Exam
Vital Signs
Vital Signs
Temp Pulse Resp BP Pulse Ox
98.1 F 75 23 99/69 94
01/17/24 07:36 01/17/24 07:30 01/17/24 07:30 01/17/24 07:00 01/17/24 07:30
Physical Exam
Constitutional: No Acute Distress and Non-toxic
Eyes: No Conjunctival Hemorrhage and Sclera Anicteric
Cardiovascular: Regular Rate and S1/S2
Pulmonary: Clear
Gastrointestinal: Soft, Non Tender, Non Distended and Normal Bowel Sounds
Genito-Urinary: Negative CVA Tenderness
Extremities: Negative Edema
Neurological: AO x 3
Objective Data
Lab Data
Lab Results
01/17/24 03:49
01/17/24 03:48
Estimated Creat Clear > 125 ml/min 01/17/24 03:48
Lactic Acid 1.1 mmol/L (0.7-2.0) 01/16/24 00:36
Total Bilirubin 0.3 mg/dl (0.2-1.3) 01/17/24 03:48
AST 57 U/L (17-59) 01/17/24 03:48
ALT 52 U/L (0-50) H 01/17/24 03:48
Alkaline Phosphatase 74 U/L (38-126) 01/17/24 03:48
Most recent labs reviewed.
Micro Results:
01/16/24 02:24 Blood Culture - Preliminary
Blood/Venous Positive culture in progress
Gram Stain - Preliminary
01/17/24 03:49 Blood Parasites Smear - Pending
Blood/Venous
01/16/24 02:54 Blood Culture - Preliminary
Blood/Venous No Growth in 24 hours- Final report to follow
01/16/24 00:36 Influenza Types A & B (DEMETRA) - Final
Nasal Swab Negative for Influenza A & B, NAAT
Negative results must be combined with clinical observations
and patient history.
Nucleic Acid Amplification test (NAAT)performed on the
[employer] platform.
01/16/24 CT a/p: No acute findings in the abdomen or pelvis.Hepatic steatosis.Punctate nonobstructing stone in the inferior pole the right kidney.
01/16/24 CXR: neg
[2024-01-17] MEDS: LR IV (08:45)
--- NOTE | 2024-01-17 08:58 | PHA.VAN.FU ---
Vancomycin Assessment / Plan
- Assessment
Renal Function: Stable
WBC's are: Stable
In the past 24 hrs, patient has been: Afebrile
Concomitant Antimicrobials: PO doxycycline
- Dosing Plan
Continue: vancomycin 1000 mg q12h - first dose 01/15 1800
- Monitoring Plan
No level(s) ordered at this time: consider levels after 01/17 1800 dose is still on
- Follow Up
Pharmacy will continue to follow.
Vancomycin Follow UP
- -
Patient Age: 58
Patient Sex: Male
Vancomycin Day #: 2
Indication: Bacteremia
Requesting Provider: Andrea
Height / Weight:
Height 5 ft 9 in
Actual Weight 84.7 kg
Pertinent Past Medical History: IVDA
- Vital Signs / Lab Results
Temp Pulse Resp BP Pulse Ox
98.1 F 69 15 91/63 94
01/17/24 07:36 01/17/24 08:30 01/17/24 08:30 01/17/24 08:00 01/17/24 08:30
Lab Results - Hematology
01/16/24 01/16/24 01/17/24
00:36 05:40 03:49
WBC 2.7 L 1.9 L* 3.2 L
Band Neutrophils 3 Not Reportable
Lab Results - Chemistry
01/16/24 01/16/24 01/17/24
00:36 05:40 03:48
BUN 16 13 9
Creatinine 0.8 0.7 0.6 L
Estimated Creat Clear 103 118 > 125
Albumin 3.5 2.7 L 3.0 L
01/16/24
00:36
Lactic Acid 1.1
Microbiology Results
01/17/24 03:49 Blood Parasites Smear - Preliminary
Blood/Venous
01/16/24 02:24 Blood Culture - Preliminary
Blood/Venous Positive culture in progress
Gram Stain - Preliminary
01/16/24 02:54 Blood Culture - Preliminary
Blood/Venous No Growth in 24 hours- Final report to follow
01/16/24 00:36 Influenza Types A & B (DEMETRA) - Final
Nasal Swab Negative for Influenza A & B, NAAT
Negative results must be combined with clinical observations
and patient history.
Nucleic Acid Amplification test (NAAT)performed on the
[employer] platform.
[2024-01-17] MEDS: VIBRAMYCIN 100 MG PO ×2 (09:30→19:24)
--- NOTE | 2024-01-17 09:33 | PTCARENOTE ---
Rec'd pt at 0700. Pt AAOx3, pt frequently irritable and cursing to self at times, but cooperative with care. Monitor SR with PAC/PVC. SBP 90's on 2mcg/min Levophed gtts, lowered to 1mcg/min. Lungs CTA. +BS, abd soft/nt. Vdg yellow urine via urinal.
[2024-01-17] MEDS: ProAmatine 5 MG PO ×2 (14:15→17:45)
[2024-01-17 15:44] LABS: Cortisol, Random 10.4 ug/dl
--- NOTE | 2024-01-17 16:53 | PTCARENOTE ---
Levophed titrated off ~1000. SBP 90's throughout afternoon. ~1415-Orthos done. Midodrine given as per orders. Pt continues to be irritable and cursing at times, stating 'all you people worry about is my blood pressure when that's not my problem'. Pt
updated on current situation and plan of care, verbalizes understanding and remains cooperative with nursing staff.
[2024-01-17] MEDS: LOVENOX SC (17:46)
--- NOTE | 2024-01-17 19:41 | PTCARENOTE ---
On assessment pt AAOx3, angry/irritable, c/o headache PRNs given see PATRICIA, SR on the monitor, RA 96%, reg diet, uses urinal, call de la rosa in reach
[2024-01-18] VITALS (36 sets, daily range): BP systolic 73–129; BP diastolic 39–84; BMI 27.5
--- NOTE | 2024-01-18 02:24 | PTCARENOTE ---
Pt BP maps ranging from 59-68, LAB[employer] RELATIONS SPECIALIST hussain texted and made aware, pt asymptomatic, one time dose Midodrine ordered.
[2024-01-18] MEDS: ProAmatine 5 MG PO ×4 (02:35→17:12)
[2024-01-18 05:15] LABS: ALT (SGPT) 79 U/L (0-50); AST (SGOT) 75 U/L (17-59); Albumin 3.2 g/dl (3.5-5.0); Alkaline Phosphatase 80 U/L (38-126); Blood Urea Nitrogen 8 mg/dl (9-20); Calcium 7.9 mg/dl (8.4-10.2); Carbon Dioxide 24 mmol/L (22-30); Chloride 105 mmol/L (98-107); Estimated Creatinine Clearance 118 ml/min; Glucose 92 mg/dl (70-99); Sodium 138 mmol/L (135-145); Total Bilirubin 0.6 mg/dl (0.2-1.3); eGFR > 60.00
[2024-01-18 05:56] LABS: Hepatitis C Antibody Negative (Negative)
[2024-01-18] MEDS: PROTONIX IV 40 MG IV (07:40)
[2024-01-18] MEDS: VIBRAMYCIN 100 MG PO ×2 (07:40→19:22)
[2024-01-18] MEDS: NSS (PRESERVATIVE FREE) 10 ML IV (07:40)
[2024-01-18 07:56] LABS: % Basophils 0.2 % (0-2); % Eosinophils 1.6 % (0-6); % Immature Granulocytes 0.7 % (0-0.5); % Lymphocytes 25.5 % (20.5-51.1); % Monocytes 7.6 % (1.7-9.3); % Neutrophils 64.4 % (42.2-75.2); Absolute Eosinophils 0.1 10^3/uL (0-0.7); Absolute Lymphocytes 1.1 10^3/uL (1.2-3.4); Absolute Monocytes 0.3 10^3/uL (0.1-0.6); Absolute Neutrophils 2.9 10^3/uL (1.4-6.5); Hematocrit 35.6 % (39.0-52.0); Hemoglobin 11.7 g/dL (13.0-18.0); Mean Corp Hgb Conc. 32.9 g/dL (33.0-37.0); Mean Corpuscular Hgb 30.2 pg (27.0-31.0); Mean Corpuscular Volume 91.8 fL (80.0-94.0); Mean Platelet Volume 9.9 fL (7.4-10.4); Nucleated Red Blood Cells % 0 % (-); Platelet Count 160 10^3/uL (130-400); Red Blood Cell Count 3.88 10^6/uL (4.70-6.10); Red Cell Dist. Width 13.9 % (11.5-14.5); White Blood Cell Count 4.5 10^3/uL (4.8-10.8)
--- NOTE | 2024-01-18 08:00 | PTCARENOTE ---
Received patient from manager shift, patient is arousable, malcontent. He is AAOx4, states he can not get comfortable. Pain in bilateral shoulders rated a 7 and pain behind his eyes at 8-9 out of 10. Explained he had tylenol and dilaudid for severe
pain. Would like something in between and to wait to talk to physician. Otherwise assessment as charted, 96% on room air, sinus rhythm on monitor, patient is hypotensive, midodrine administered. Patient has diet ordered but is not hungry at
this time. 400ml of fannie urine emptied from urinal. Patient skin is intact, has been refusing scds. Patient is unkempt, odorous, offered to help patient get washed up. Will review orders, call de la rosa within reach.
--- NOTE | 2024-01-18 09:34 | W.PN.HOSP.TC ---
Today's Communication/Plan
-
see bold
Assessment / Plan
Assessment / Plan
HPI: 58-year-old male with history of IV drug use/skin popping methamphetamine last use about 2 weeks ago who presented to the ER last night due to 1 week history of fever. He reports not feeling well for about a week with his subjective fevers,
chills, diffuse abdominal pain and nausea.
Septic shock -source unclear but rule out bacteremia related to IV drug abuse. 1 out of 2 blood cultures positive for coag negative staph, contamination. ID following, recommend discontinuing cefepime. Continue empiric doxycycline day 2. Babesia
smear negative. F/u anaplasma, ehrlichia, lyme serology. Now off Levophed, continue midodrine 5 mg 3 times daily. Reports his blood pressure always runs low.
Positive HIV combination assay -will need confirmatory antibody differentiation immunoassay. Did not discuss preliminary test results with patient, need confirmation first. CD4, HIV viral load pending. HCV antibody pending.
Substance abuse -known history of IV drug abuse, inhalation use of methamphetamine. Urine drug screen positive for methamphetamines.
Pancytopenia -etiology unclear but could be due to sepsis, etc. Counts are slowly improving.
Hyponatremia -present on admission, improved.
DVT prophylaxis�subcu Lovenox
Full code
Total time spent to see the patient on the floor, examine the patient, review data and lab results, discuss treatment plan with patient, nursing staff around 40 minutes.
Physical Exam
General: No acute distress
HEENT: Normocephalic, Atraumatic, EOMI, MMM
Respiratory: Clear to Auscultation bilaterally
Cardiac: Normal S1/S2, Regular Rate and Rhythm
GI: Soft, Nontender, distended, Normal Bowel Sounds
Extremities: No Clubbing, Cyanosis, or Edema
Neuro: Nonfocal/Grossly Intact
Psych: Calm, Cooperative
Derm: No Visible lesions
Anticipated Discharge: 24 - 48 hours
Subjective/Interval History
-
Date of Service: January 18, 2024
Patient reports abdominal pain, diffuse. No nausea, no vomiting. No constipation, no diarrhea. No chest pain, no shortness of breath. No fever.
Objective Data
-
Labs:
Laboratory Results
01/18/24
04:28
WBC 4.5 L
Hgb 11.7 L
Hct 35.6 L
Plt Count 160 D
Sodium 138
Potassium 4.0
Chloride 105
Carbon Dioxide 24
BUN 8 L
Creatinine 0.7
Glucose 92
Calcium 7.9 L
Total Bilirubin 0.6
AST 75 H
ALT 79 H
Alkaline Phosphatase 80
Vital Signs:
Vital Signs
Temp Pulse Resp BP Pulse Ox
98.5 F 65 18 90/48 96
01/18/24 07:47 01/18/24 08:00 01/18/24 08:00 01/18/24 08:00 01/18/24 08:17
I&O
01/17/24 01/18/24 01/19/24
06:59 06:59 06:59
Intake Total 4956.3 / 4963.8 375.1 / 375.1
Output Total 3875 / 3875 1500 / 1500 400 / 400
Balance 1081.3 / 1088.8 -1124.9 / -1124.9 -400 / -400
--- NOTE | 2024-01-18 09:42 | W.PN.ID1 ---
Addendum entered and electronically signed by Radha Holm MD 01/18/24 15:15:
I saw and evaluated the patient. I reviewed the resident�s note and agree with findings and plan as documented in the resident�s note.
#CoNS bacteremia 1 of 2 sets = contaminant.
- No need to treat.
# Pancytopenia - improving
# transaminitis
-Tickborne disease work-up: Babesia smear negative. anaplasma, ehrlichia, lyme serology pending
- Continue empiric doxycycline (d2)
-DC cefepime
# IVDU
# High risk sexual behavior
-HIV Ag/Ab reactive. Awaiting confirmation
-CD4 and HIV viral load pending.
-HCV ab pending
# Hypotension - weaning pressor
Original Note:
Date of Service
Date of Service: January 18, 2024
Today's Communication
d/c vancomycin.
Assessment / Plan
Assessment/Plan
# GPC bacteremia 1 of 2 sets
# MRSA colonized
-GPC clusters in blood cultures most likely contaminant.
-Repeat blood cultures negative
-d/c Vancomycin
# Pancytopenia
# Mild transaminitis
-Tickborne disease work-up: Babesia smear, anaplasma, ehrlichia, lyme serology pending.
- Continue empiric doxycycline.
# Suspect HIV
# IVDU/skin popper
# High risk sexual behavior
- Preliminary HIV screen turned reactive, awaiting confirmation.
(09/29/2022 HIV screen negative).
- Risk factors: Pt is bisexual with multiple partners without barrier protection use. Also IVDU.
- Informed patient of preliminary results, awaiting differentiation/confirmation.
- Ordered HIV viral PCR in am (regardless positive or negative HIV confirmation). Check CD4 count
#Fever - resolving
-CXR neg. CT a/p neg, UA neg
Chief Complaint
-: Fever
Subjective / Review of Systems
Patient seen and examined at bedside. Complaining of nausea, headache and mild abdominal tenderness.
Vital Signs / Physical Exam
Vital Signs
Vital Signs
Temp Pulse Resp BP Pulse Ox
98.5 F 65 18 90/48 96
01/18/24 07:47 01/18/24 08:00 01/18/24 08:00 01/18/24 08:00 01/18/24 08:17
Physical Exam
Cardiovascular: Regular Rate and S1/S2
Pulmonary: Clear
Gastrointestinal: Soft, Tender (mild generalized tenderness), Non Distended and Normal Bowel Sounds
Extremities: Negative Edema
Neurological: AO x 3
Objective Data
Lab Data
Lab Results
01/18/24 04:28
01/18/24 04:28
Estimated Creat Clear 118 ml/min 01/18/24 04:28
Lactic Acid 1.1 mmol/L (0.7-2.0) 01/16/24 00:36
Total Bilirubin 0.6 mg/dl (0.2-1.3) 01/18/24 04:28
AST 75 U/L (17-59) H 01/18/24 04:28
ALT 79 U/L (0-50) H 01/18/24 04:28
Alkaline Phosphatase 80 U/L (38-126) 01/18/24 04:28
Most recent labs reviewed.
Micro Results:
01/17/24 09:05 Blood Culture - Preliminary
Blood/Venous No Growth in 24 hours- Final report to follow
01/16/24 02:54 Blood Culture - Preliminary
Blood/Venous No Growth in 48 hours- Final report to follow
01/17/24 03:49 Blood Parasites Smear - Final
Blood/Venous
01/16/24 02:24 Blood Culture - Preliminary
Blood/Venous Coagulase neg. staphylococcus
Additional testing on request
Gram Stain - Preliminary
01/16/24 00:36 Influenza Types A & B (DEMETRA) - Final
Nasal Swab Negative for Influenza A & B, NAAT
Negative results must be combined with clinical observations
and patient history.
Nucleic Acid Amplification test (NAAT)performed on the
[employer] platform.
01/16/24 CT a/p: No acute findings in the abdomen or pelvis.Hepatic steatosis.Punctate nonobstructing stone in the inferior pole the right kidney.
01/16/24 CXR: neg
[2024-01-18] MEDS: TYLENOL 650 MG PO ×2 (12:15→19:22)
--- NOTE | 2024-01-18 14:17 | CM ---
CM following re: discharge planning.
Reviewed pt's chart, met with pt.
Pt is a 58 year old male, admitted with primary dx of Septic shock.
Pt expressed severe unhappiness to participate in the interview, expressed anger feelings with dismissal attitude. Pt stated he 'has no place to live now, used to lives with SO and 12 year old son'. In a very angry manner pt requested not to
participate in the interview and requested this CM to leave the room. CM respectfully left the room.
D/C plan: return back to his living arrangement. Pt declined to explain his living arrangements.
CM will follow with discharge plan updates as hospitalization progresses
[2024-01-18 15:46] LABS: Lyme Antibody Screen, EIA Negative (Negative)
--- NOTE | 2024-01-18 16:30 | PTCARENOTE ---
Patient had to go back on levo gtt to maintain MAP>65. charted in worklist.
[2024-01-18] MEDS: LOVENOX 40 MG SC (17:12)
[2024-01-18] MEDS: LEVOPHED 250 IV (17:13)
--- NOTE | 2024-01-18 18:10 | PTCARENOTE ---
Paged IVT for loss of peripheral Lines. order to PICC obtained
[2024-01-19] VITALS (43 sets, daily range): BP systolic 76–112; BP diastolic 47–84; BMI 27.6
[2024-01-19] MEDS: TYLENOL 650 MG PO ×3 (03:33→16:54)
[2024-01-19] MEDS: LEVOPHED 250 IV (03:33)
--- NOTE | 2024-01-19 03:51 | PTCARENOTE ---
AM labs sent. no changes in assessment. PRN tylenol given for mild generalized pain. pt using urinal at bedside. call de la rosa in reach.
[2024-01-19 04:05] LABS: Blood Urea Nitrogen 10 mg/dl (9-20); Calcium 7.9 mg/dl (8.4-10.2); Carbon Dioxide 25 mmol/L (22-30); Chloride 106 mmol/L (98-107); Estimated Creatinine Clearance > 125 ml/min; Glucose 118 mg/dl (70-99); Sodium 140 mmol/L (135-145); eGFR > 60.00
[2024-01-19 04:06] LABS: Hematocrit 37.4 % (39.0-52.0); Hemoglobin 12.3 g/dL (13.0-18.0); Mean Corp Hgb Conc. 32.9 g/dL (33.0-37.0); Mean Corpuscular Hgb 29.8 pg (27.0-31.0); Mean Corpuscular Volume 90.6 fL (80.0-94.0); Mean Platelet Volume 9.8 fL (7.4-10.4); Platelet Count 241 10^3/uL (130-400); Red Blood Cell Count 4.13 10^6/uL (4.70-6.10); Red Cell Dist. Width 13.4 % (11.5-14.5); White Blood Cell Count 4.7 10^3/uL (4.8-10.8)
[2024-01-19 05:16] LABS: % Basophils 0.4 % (0-2); % Eosinophils 1.5 % (0-6); % Immature Granulocytes 0.6 % (0-0.5); % Lymphocytes 29.6 % (20.5-51.1); % Monocytes 9.6 % (1.7-9.3); % Neutrophils 58.3 % (42.2-75.2); Absolute Eosinophils 0.1 10^3/uL (0-0.7); Absolute Lymphocytes 1.4 10^3/uL (1.2-3.4); Absolute Monocytes 0.5 10^3/uL (0.1-0.6); Absolute Neutrophils 2.7 10^3/uL (1.4-6.5); Nucleated Red Blood Cells % 0 % (-)
[2024-01-19] MEDS: ProAmatine 5 MG PO ×3 (07:36→16:57)
[2024-01-19] MEDS: VIBRAMYCIN 100 MG PO ×2 (07:36→19:05)
[2024-01-19] MEDS: PROTONIX IV 40 MG IV (07:36)
[2024-01-19] MEDS: NSS (PRESERVATIVE FREE) 10 ML IV (07:36)
--- NOTE | 2024-01-19 09:19 | W.PN.HOSP.TC ---
Today's Communication/Plan
-
see bold
Assessment / Plan
Assessment / Plan
HPI: 58-year-old male with history of IV drug use/skin popping methamphetamine last use about 2 weeks ago who presented to the ER last night due to 1 week history of fever. He reports not feeling well for about a week with his subjective fevers,
chills, diffuse abdominal pain and nausea.
Septic shock -source unclear but rule out bacteremia related to IV drug abuse. 1 out of 2 blood cultures positive for coag negative staph, contamination. ID following, recommend discontinuing cefepime. Continue empiric doxycycline day 3. Babesia
smear negative. F/u anaplasma, ehrlichia, lyme serology. Back on Levophed 01/17, wean as tolerated. Continue midodrine 5 mg 3 times daily. Reports his blood pressure always runs low.
Positive HIV combination assay -will need confirmatory antibody differentiation immunoassay. Patient informed of preliminary results, await confirmation. CD4, HIV viral load pending. HCV antibody pending.
Substance abuse without dependency-known history of IV drug abuse, inhalation use of methamphetamine. Urine drug screen positive for methamphetamines.
Pancytopenia -etiology unclear but could be due to sepsis, etc. Counts are slowly improving.
Hyponatremia -present on admission, resolved.
DVT prophylaxis�subcu Lovenox
Full code
Total time spent to see the patient on the floor, examine the patient, review data and lab results, discuss treatment plan with patient, nursing staff around 38 minutes.
Physical Exam
General: No acute distress
HEENT: Normocephalic, Atraumatic, EOMI, MMM
Respiratory: Clear to Auscultation bilaterally
Cardiac: Normal S1/S2, Regular Rate and Rhythm
GI: Soft, Nontender, distended, Normal Bowel Sounds
Extremities: No Clubbing, Cyanosis, or Edema
Neuro: Nonfocal/Grossly Intact
Psych: Calm, Cooperative
Derm: No Visible lesions
Anticipated Discharge: 24 - 48 hours
Subjective/Interval History
-
Date of Service: January 19, 2024
Patient reports lightheadedness and photophobia. No abdominal pain, no chest pain, no shortness of breath. No fever, no vomiting.
Objective Data
-
Labs:
Laboratory Results
01/19/24
03:29
WBC 4.7 L
Hgb 12.3 L
Hct 37.4 L
Plt Count 241 D
Sodium 140
Potassium 4.0
Chloride 106
Carbon Dioxide 25
BUN 10
Creatinine 0.6 L
Glucose 118 H
Calcium 7.9 L
Vital Signs:
Vital Signs
Temp Pulse Resp BP Pulse Ox
97.9 F 49 23 96/61 97
01/19/24 07:30 01/19/24 08:00 01/19/24 08:00 01/19/24 08:00 01/19/24 08:19
I&O
01/18/24 01/19/24 01/20/24
06:59 06:59 06:59
Intake Total 375.1 / 375.1 982.5 / 982.5 0 / 0
Output Total 1500 / 1500 2200 / 2200 0 / 0
Balance -1124.9 / -1124.9 -1217.5 / -1217.5 0 / 0
--- NOTE | 2024-01-19 09:46 | PTCARENOTE ---
attempted to assist with AM hygine, pt refused. education and encouragement provided. pt replied: 'don't bother'
--- NOTE | 2024-01-19 09:57 | W.PN.ID1 ---
Date of Service
Date of Service: January 19, 2024
Today's Communication
Continue doxycycline.
Awaiting labs.
Assessment / Plan
Assessment/Plan
# Pancytopenia - improving
# Mild transaminitis
-Tickborne disease work-up: Babesia smear negative. Lyme negative. anaplasma, ehrlichia serology pending.
- Continue empiric doxycycline (d3).
# Suspect HIV
# IVDU/skin popper
# High risk sexual behavior
- Preliminary HIV screen turned reactive, awaiting confirmation.
(09/29/2022 HIV screen negative).
- Risk factors: Pt is bisexual with multiple partners without barrier protection use. Also IVDU.
- patient aware or preliminary results, awaiting HIV differentiation/confirmation.
-HIV viral PCR and CD4 count pending.
-HCV Ab negative.
# Hypotension - off pressor.
#Fever - resolved
-CXR neg. CT a/p neg, UA neg
- CoNS bacteremia 1 of 2 sets =contaminant
-Repeat blood cultures negative
Chief Complaint
-: Other
Subjective / Review of Systems
Feels same.
Vital Signs / Physical Exam
Vital Signs
Vital Signs
Temp Pulse Resp BP Pulse Ox
97.9 F 49 23 96/61 97
01/19/24 07:30 01/19/24 08:00 01/19/24 08:00 01/19/24 08:00 01/19/24 08:19
Physical Exam
Constitutional: No Acute Distress and Comfortable
Cardiovascular: Regular Rate and S1/S2
Pulmonary: Clear
Gastrointestinal: Soft, Non Tender and Non Distended
Extremities: Negative Edema
Neurological: AO x 3
Objective Data
Lab Data
Lab Results
01/19/24 03:29
01/19/24 03:29
Estimated Creat Clear > 125 ml/min 01/19/24 03:29
Lactic Acid 1.1 mmol/L (0.7-2.0) 01/16/24 00:36
Total Bilirubin 0.6 mg/dl (0.2-1.3) 01/18/24 04:28
AST 75 U/L (17-59) H 01/18/24 04:28
ALT 79 U/L (0-50) H 01/18/24 04:28
Alkaline Phosphatase 80 U/L (38-126) 01/18/24 04:28
Most recent labs reviewed.
Micro Results:
01/17/24 09:05 Blood Culture - Preliminary
Blood/Venous No Growth in 48 hours- Final report to follow
01/16/24 02:54 Blood Culture - Preliminary
Blood/Venous No Growth in 72 hours- Final report to follow
01/17/24 03:49 Blood Parasites Smear - Final
Blood/Venous
01/16/24 02:24 Blood Culture - Preliminary
Blood/Venous Coagulase neg. staphylococcus
Additional testing on request
Gram Stain - Preliminary
01/16/24 00:36 Influenza Types A & B (DEMETRA) - Final
Nasal Swab Negative for Influenza A & B, NAAT
Negative results must be combined with clinical observations
and patient history.
Nucleic Acid Amplification test (NAAT)performed on the
[employer] platform.
01/16/24 CT a/p: No acute findings in the abdomen or pelvis.Hepatic steatosis.Punctate nonobstructing stone in the inferior pole the right kidney.
01/16/24 CXR: neg
--- NOTE | 2024-01-19 13:00 | PTCARENOTE ---
pt continues to maintain MAP >65 and remain off Levo. tylenol for headache. Pt did accept assistance with hygiene and ambulated to bathroom. Encouraged OOB to chair and pt refused. Pt now resting comfortably in bed. CB in reach. continue to trend
BP.
--- NOTE | 2024-01-19 13:09 | PN.CDI ---
CDI
- -
CDI:
Physician Documentation Request
Admit Date: 01/16/24 03:37
Dear Doctor Do,
Hospitalist progress notes state 'Substance abuse -known history of IV drug abuse, inhalation use of methamphetamine. Urine drug screen positive for methamphetamines. '
ID notes state 'IVDU'
Please clarify as outlined below:
1. Please specify the pattern of use, include all that apply:
- Use, with or without abuse and/or dependence
- Abuse with or without dependence
- Dependence
2. Please identify any associated manifestations
- Intoxication: with or without delirium, with or without perceptual disturbance
- With substance induced psychotic disorder: with delusions and/or hallucinations
- Withdrawal
- With substance induced sleep disorder and/or sexual dysfunction
- Other, please specify
- No manifestations
Use of terms such as suspected, likely, concern for, or probable (associated with a specific diagnosis that is being evaluated, monitored, or treated as if it exists) are acceptable and can be coded in the inpatient setting, when documented at the
time of discharge.
Thank you,
Savannah Cook RN, BSN
CDI Specialist
tiger text
Please use your independent medical judgment in providing your response.
[2024-01-19 14:38] LABS: CD4 % of Cells Analyzed 32 % (32-64); CD4 Absolute Count 358 cells/uL (430-1800)
[2024-01-19] MEDS: LOVENOX 40 MG SC (16:57)
--- NOTE | 2024-01-19 17:44 | PTCARENOTE ---
Levo gtt started 2mcg D/T SBP <65. continue midodrine. Tylenol for c/o BLEVINS. Otherwise no change in assessment, pt remains agitated with most patient care interventions. CB in reach.
[2024-01-19 18:06] LABS: HIV Serologic Interpretation HIV Abs Neg; HIV-1 Antibody Negative (Negative); HIV-2 Antibody Negative (Negative)
[2024-01-19 19:12] LABS: Ehrlichia chaffeensis IgG Ab <1:64 (<1:64); Ehrlichia chaffeensis IgM Ab < 1:16 (< 1:16)
--- NOTE | 2024-01-19 19:30 | PTCARENOTE ---
Resumed care of pt this evening. Received pt on levo gtt infusing at 2 mcg/min via right PICC. Pt is A&Ox3, can move all 4 extremities, and can make needs known. Pt is NSR on tele monitor, has no edema, and palpable pedal pulses bilaterally. Pt is
on RA satting at 97% pulse ox. On auscultation pt lungs sound diminished at the bases bilaterally, otherwise clear. Pt's abdomen is round, soft, and has active BS. Pt voiding fannie colored urine in urinal. Pt has scabbed abrasion on right foot, skin
is otherwise C/D/I.
[2024-01-20] VITALS (34 sets, daily range): BP systolic 79–103; BP diastolic 42–71; BMI 26.3
[2024-01-20] MEDS: TYLENOL 650 MG PO ×3 (01:33→17:40)
[2024-01-20 03:58] LABS: Hematocrit 35.7 % (39.0-52.0); Hemoglobin 12.1 g/dL (13.0-18.0); Mean Corp Hgb Conc. 33.9 g/dL (33.0-37.0); Mean Corpuscular Volume 88.6 fL (80.0-94.0); Mean Platelet Volume 9.6 fL (7.4-10.4); Platelet Count 245 10^3/uL (130-400); Red Blood Cell Count 4.03 10^6/uL (4.70-6.10); Red Cell Dist. Width 13.4 % (11.5-14.5); White Blood Cell Count 4.7 10^3/uL (4.8-10.8)
[2024-01-20] MEDS: NSS (PRESERVATIVE FREE) 10 ML IV (07:58)
[2024-01-20] MEDS: VIBRAMYCIN 100 MG PO (07:58)
[2024-01-20] MEDS: PROTONIX IV 40 MG IV (07:58)
[2024-01-20] MEDS: ProAmatine 5 MG PO (07:59)
--- NOTE | 2024-01-20 08:51 | W.PN.HOSP.TC ---
Today's Communication/Plan
-
see bold
Assessment / Plan
Assessment / Plan
HPI: 58-year-old male with history of IV drug use/skin popping methamphetamine last use about 2 weeks ago who presented to the ER last night due to 1 week history of fever. He reports not feeling well for about a week with his subjective fevers,
chills, diffuse abdominal pain and nausea.
Septic shock -source unclear but rule out bacteremia related to IV drug abuse. 1 out of 2 blood cultures positive for coag negative staph, contamination. ID following, recommend discontinuing cefepime. Continue empiric doxycycline day 4. Babesia
smear neg. Lyme neg. Anaplasma, ehrlichia neg. Back on Levophed 01/17, wean as tolerated. Increase midodrine 10 mg 3 times daily. Reports his blood pressure always runs low.
Mild transaminitis -monitor
Positive HIV combination assay -will need confirmatory antibody differentiation immunoassay. Patient informed of preliminary results, await confirmation. CD4, HIV viral load pending. HCV antibody neg. Patient is bisexual with multiple partners
without barrier protection use. Also IVDU.
Substance abuse without dependency-known history of IV drug abuse, inhalation use of methamphetamine. Urine drug screen positive for methamphetamines.
Abdominal pain -CT abdomen pelvis with IV contrast on 01/16/2024 negative, shows hepatic steatosis
Pancytopenia -etiology unclear but could be due to sepsis, etc. Counts are slowly improving.
Hyponatremia -present on admission, resolved.
Hepatic steatosis�outpatient follow-up with GI recommended
DVT prophylaxis�subcu Lovenox
Full code
Total time spent to see the patient on the floor, examine the patient, review data and lab results, discuss treatment plan with patient, nursing staff around 45 minutes.
Physical Exam
General: No acute distress
HEENT: Normocephalic, Atraumatic, EOMI, MMM
Respiratory: Clear to Auscultation bilaterally
Cardiac: Normal S1/S2, Regular Rate and Rhythm
GI: Soft, tender, distended, Normal Bowel Sounds
Extremities: No Clubbing, Cyanosis, or Edema
Neuro: Nonfocal/Grossly Intact
Psych: Calm, Cooperative
Derm: No Visible lesions
Anticipated Discharge: 24 - 48 hours
Subjective/Interval History
-
Date of Service: January 19, 2024
Patient reports abdominal pain, diffuse. He also feels lightheaded and dizzy. No fever, no vomiting.
Objective Data
-
Vital Signs:
Vital Signs
Temp Pulse Resp BP Pulse Ox
97.6 F 70 18 81/65 97
01/19/24 16:13 01/19/24 16:32 01/19/24 16:32 01/19/24 16:32 01/19/24 13:30
I&O
01/18/24 01/19/24 01/20/24
06:59 06:59 06:59
Intake Total 375.1 / 375.1 982.5 / 982.5 750 / 750
Output Total 1500 / 1500 2200 / 2200 650 / 650
Balance -1124.9 / -1124.9 -1217.5 / -1217.5 100 / 100
[2024-01-20 11:43] LABS: Anaplasma phagocytophilum IgG <1:80 (<1:80); Anaplasma phagocytophilum IgM < 1:16 (< 1:16)
[2024-01-20] MEDS: ProAmatine 10 MG PO ×2 (12:03→17:22)
--- NOTE | 2024-01-20 12:18 | PTCARENOTE ---
increased midodrine dose administered. Levo stopped MAP 79. pt assisted to bathroom. continues to be agitated with staff. Tylenol for headache. CB in reach
--- NOTE | 2024-01-20 13:03 | CM ---
CM following re: discharge planning.
Reviewed pt's chart, met with pt. pt expressed no interest to participate in conversation.
CM spoke to pt's SO Cindi and she stated that she and the pt sold the house and after when they paid what were owed they became homeless with only $4,000.00 in their hands. Pt's SO stated she stays with a friend at: [address] [facility]
[place]. per Cindi, when pt is discharged he will come to that address and pt will need transportation at discharge.
Pt's SO stated that their 12 year old son stays at his school friend [place] and [facility] is involved.
CM will check with pt's insurance [employer] to get an auth for transportation at discharge.
D/C plan: home to friend's house and family support.
CM will follow with discharge plan updates as hospitalization progresses
--- NOTE | 2024-01-20 13:32 | W.PN.ID1 ---
Addendum entered and electronically signed by Radha Holm MD 01/20/24 16:45:
I saw and evaluated the patient. I reviewed the resident�s note and agree with most of the findings and plan as documented in the resident�s note.
# Pancytopenia - resolving
# Mild transaminitis
-Tickborne disease work-up: negative w/ Babesia smear negative. Lyme negative. anaplasma, ehrlichia serology negative.
Anaplasma and Ehrlichia PCR negative
- Discontinue empiric doxycycline (d4).
- Follow LFT's
# Suspect HIV
# IVDU/skin popper
# High risk sexual behavior
- Preliminary HIV screen turned reactive
(09/29/2022 HIV screen negative).
- Risk factors: Pt is bisexual with multiple partners without barrier protection use. Also IVDU.
- HIV ag/Ab reactive; HIV1 Ab negative, HIV2 Ab negative.
Either false positive HIV screen vs early acute HIV. Await HIV1 viral load.
-CD4 358 (32%)
-HCV Ab negative.
# Hypotension - off pressor.
#Fever - resolved
-CXR neg. CT a/p neg, UA neg
- CoNS bacteremia 1 of 2 sets =contaminant
-Repeat blood cultures negative
Original Note:
Date of Service
Date of Service: January 20, 2024
Today's Communication
d/c doxycycline
Assessment / Plan
Assessment/Plan
# Pancytopenia - improving
# Mild transaminitis
-Tickborne disease work-up: Babesia smear negative. Lyme negative. anaplasma, ehrlichia serology negative.
- d/c doxycycline
# Suspect HIV
# IVDU/skin popper
# High risk sexual behavior
- Preliminary HIV screen turned reactive, awaiting confirmation.
(09/29/2022 HIV screen negative).
- Risk factors: Pt is bisexual with multiple partners without barrier protection use. Also IVDU.
- patient aware or preliminary results, awaiting HIV differentiation/confirmation.
-HIV viral PCR and CD4 count pending.
-HCV Ab negative.
# Hypotension - off pressor.
#Fever - resolved
-CXR neg. CT a/p neg, UA neg
- CoNS bacteremia 1 of 2 sets =contaminant
-Repeat blood cultures negative
Chief Complaint
-: Other
Subjective / Review of Systems
patient seen and examined at bedside. Complaining of headache. Denies cp, sob. denies fever, chills.
Vital Signs / Physical Exam
Vital Signs
Vital Signs
Temp Pulse Resp BP Pulse Ox
98.4 F 79 17 102/69 94
01/20/24 11:09 01/20/24 12:03 01/20/24 11:49 01/20/24 12:03 01/20/24 08:30
Physical Exam
Constitutional: No Acute Distress and Comfortable
Cardiovascular: Regular Rate and S1/S2
Pulmonary: Clear
Gastrointestinal: Soft, Non Tender and Non Distended
Extremities: Negative Edema
Neurological: AO x 3
Objective Data
Lab Data
Lab Results
01/20/24 03:41
01/19/24 03:29
Estimated Creat Clear > 125 ml/min 01/19/24 03:29
Lactic Acid 1.1 mmol/L (0.7-2.0) 01/16/24 00:36
Total Bilirubin 0.6 mg/dl (0.2-1.3) 01/18/24 04:28
AST 75 U/L (17-59) H 01/18/24 04:28
ALT 79 U/L (0-50) H 01/18/24 04:28
Alkaline Phosphatase 80 U/L (38-126) 01/18/24 04:28
Most recent labs reviewed.
Micro Results:
01/17/24 09:05 Blood Culture - Preliminary
Blood/Venous No Growth in 72 hours- Final report to follow
01/16/24 02:54 Blood Culture - Preliminary
Blood/Venous No Growth in 4 days- Final report to follow
01/17/24 03:49 Blood Parasites Smear - Final
Blood/Venous
01/16/24 02:24 Blood Culture - Preliminary
Blood/Venous Coagulase neg. staphylococcus
Additional testing on request
Gram Stain - Preliminary
01/16/24 00:36 Influenza Types A & B (DEMETRA) - Final
Nasal Swab Negative for Influenza A & B, NAAT
Negative results must be combined with clinical observations
and patient history.
Nucleic Acid Amplification test (NAAT)performed on the
[employer] platform.
01/16/24 CT a/p: No acute findings in the abdomen or pelvis.Hepatic steatosis.Punctate nonobstructing stone in the inferior pole the right kidney.
01/16/24 CXR: neg
[2024-01-20] MEDS: LOVENOX 40 MG SC (17:23)
[2024-01-20] MEDS: DILAUDID 0.5 MG IV (18:34)
--- NOTE | 2024-01-20 18:42 | PTCARENOTE ---
pt agitated. reporting PRN Tylenol offered no relief for headache. PRN dilaudid administered. Pt reports pain is in the posterior neck. Dark quiet environment. Pt asked this nurse 'what's this bull shit a 12 year old can't visit?!' informed of ICU
visitation age limit. pt replies 'thanks for adding to his fucking trauma then' and refused to elaborate/discuss. encouraged rest. CB in reach.
[2024-01-21] VITALS (13 sets, daily range): BP systolic 83–102; BP diastolic 45–67; BMI 26.8
[2024-01-21] MEDS: DILAUDID 0.5 MG IV ×2 (01:43→08:39)
[2024-01-21 03:41] LABS: Hematocrit 34.9 % (39.0-52.0); Hemoglobin 11.9 g/dL (13.0-18.0); Mean Corp Hgb Conc. 34.1 g/dL (33.0-37.0); Mean Corpuscular Hgb 30.1 pg (27.0-31.0); Mean Corpuscular Volume 88.4 fL (80.0-94.0); Mean Platelet Volume 9.2 fL (7.4-10.4); Platelet Count 226 10^3/uL (130-400); Red Blood Cell Count 3.95 10^6/uL (4.70-6.10); Red Cell Dist. Width 13.5 % (11.5-14.5); White Blood Cell Count 4.2 10^3/uL (4.8-10.8)
[2024-01-21 04:09] LABS: ALT (SGPT) 111 U/L (0-50); AST (SGOT) 98 U/L (17-59); Albumin 3.3 g/dl (3.5-5.0); Alkaline Phosphatase 150 U/L (38-126); Blood Urea Nitrogen 12 mg/dl (9-20); Calcium 8.2 mg/dl (8.4-10.2); Carbon Dioxide 23 mmol/L (22-30); Chloride 105 mmol/L (98-107); Estimated Creatinine Clearance 118 ml/min; Glucose 91 mg/dl (70-99); Phosphorus 3.2 mg/dl (2.5-4.5); Potassium 4.2 mmol/L (3.5-5.1); Sodium 138 mmol/L (135-145); Total Bilirubin 0.3 mg/dl (0.2-1.3); eGFR > 60.00
--- NOTE | 2024-01-21 05:39 | PTCARENOTE ---
Pt sleeping intermittently t/o the night. Pt ambulatory to bathroom with standby assist when needed. Pt complaining of severe headache and neck pain. PRN pain medication administered as ordered. Pt easily irritated, but semi cooperative with care.
Levophed remains off overnight. BP stable when pt laying flat, Pt laying curled up on side most of the night with low BP readings at times. HR in the 80's in NSR. Spot checking POX, remains 95% on RA. Bed alarm in place to ensure pt safety, pt using
call de la orsa appropriately. Will continue to monitor.
[2024-01-21 06:05] LABS: HIV-1 Quan NAAT Interpretation Detected (Not Detected); HIV-1 Quant NAAT (log copy/mL) >7.00 log cpy/mL
[2024-01-21] MEDS: TYLENOL 650 MG PO (06:42)
[2024-01-21] MEDS: ProAmatine 10 MG PO ×3 (08:39→17:10)
[2024-01-21] MEDS: PROTONIX IV IV (08:46)
[2024-01-21] MEDS: NSS (PRESERVATIVE FREE) IV (08:46)
--- NOTE | 2024-01-21 08:46 | PTCARENOTE ---
recd pt, c/o continuing head pain, speech quick and sometimes garbled, occas requesting repeat for clarity. unhappy about pain med situation, tylenol earlier 'never works for me, and I told them that'. head pain rates 9-9.5 front of head and back
of neck and behind eyes. med with dilaudid as ordered. refused protonix, agreed to midodrine. refusing breakfast 'because the pain is too bad'. call de [place] rosa in reach, rest of assessment as documented.
--- NOTE | 2024-01-21 08:55 | W.PN.ID1 ---
Addendum entered and electronically signed by Radha Holm MD 01/21/24 15:04:
I saw and evaluated the patient. I reviewed the resident�s note and agree with findings and plan as documented in the resident�s note.
# Acute HIV
# IVDU/skin popper
# High risk sexual behavior -bisexual with multiple partners without barrier protection use.
- HIV ag/Ab reactive; HIV1 Ab negative, HIV2 Ab negative.
HIV viral load >10,000,000 copies
-CD4 358 (32%)
- Informed and discussed with patient regarding HIV status. Provided support.
- Start Biktarvy 1 tab qd today.
# Rising transaminases
- CT a/p + hepatic steatosis
-HCV Ab negative.
- Check HepB core IgM and total, surface Ag and Ab
- Check HAV as part of HIV screening test.
- Check RPR
# BLEVINS suspect migraine vs acute HIV sxs
- neck supple.
-zero suspicion for opportunistic [employer] infection as CD4 32%
- Ibuprofen prn.
Original Note:
Date of Service
Date of Service: January 21, 2024
Today's Communication
.
Assessment / Plan
Assessment/Plan
# Pancytopenia - resolving
# Mild transaminitis- trending up
-Tickborne disease work-up: Babesia smear negative. Lyme negative. anaplasma, ehrlichia serology negative.
Anaplasma and Ehrlichia PCR negative
- doxycycline discontinued after 4 days of therapy, and negative serologies.
# Acute HIV Infection- New diagnosis
# Mild transaminitis- trending up
# IVDU/skin popper
# High risk sexual behavior
- Preliminary HIV screen turned reactive, awaiting confirmation.
(09/29/2022 HIV screen negative).
- Risk factors: Pt is bisexual with multiple partners without barrier protection use. Also IVDU.
- HIV ag/Ab reactive; HIV1 Ab negative, HIV2 Ab negative.
early acute HIV. HIGH HIV1 viral load >10million
-CD4 358 (32%)
-HCV Ab negative
- Started on Biktarvy
-Check RPR, Chlam/Gonorrhea Urine
-Check Hepatitis A and B panel
# Hypotension - off pressor.
#Fever - resolved
-CXR neg. CT a/p neg, UA neg
- CoNS bacteremia 1 of 2 sets =contaminant
-Repeat blood cultures negative
Chief Complaint
-: Other
Vital Signs / Physical Exam
Vital Signs
Vital Signs
Temp Pulse Resp BP Pulse Ox
98.4 F 78 13 92/58 96
01/21/24 08:00 01/21/24 08:39 01/21/24 08:00 01/21/24 08:39 01/21/24 03:28
Physical Exam
Constitutional: No Acute Distress
Cardiovascular: Regular Rate and S1/S2
Pulmonary: Clear
Gastrointestinal: Soft, Non Tender and Non Distended
Extremities: Negative Edema
Neurological: AO x 3
Objective Data
Lab Data
Lab Results
01/21/24 03:20
01/21/24 03:20
Estimated Creat Clear 118 ml/min 01/21/24 03:20
Lactic Acid 1.1 mmol/L (0.7-2.0) 01/16/24 00:36
Total Bilirubin 0.3 mg/dl (0.2-1.3) 01/21/24 03:20
AST 98 U/L (17-59) H 01/21/24 03:20
ALT 111 U/L (0-50) H 01/21/24 03:20
Alkaline Phosphatase 150 U/L (38-126) H 01/21/24 03:20
Most recent labs reviewed.
Micro Results:
01/16/24 02:54 Blood Culture - Final
Blood/Venous No Growth - Final Report
01/17/24 09:05 Blood Culture - Preliminary
Blood/Venous No Growth in 72 hours- Final report to follow
01/17/24 03:49 Blood Parasites Smear - Final
Blood/Venous
01/16/24 02:24 Blood Culture - Preliminary
Blood/Venous Coagulase neg. staphylococcus
Additional testing on request
Gram Stain - Preliminary
01/16/24 00:36 Influenza Types A & B (DEMETRA) - Final
Nasal Swab Negative for Influenza A & B, NAAT
Negative results must be combined with clinical observations
and patient history.
Nucleic Acid Amplification test (NAAT)performed on the
[employer] platform.
01/16/24 CT a/p: No acute findings in the abdomen or pelvis.Hepatic steatosis.Punctate nonobstructing stone in the inferior pole the right kidney.
01/16/24 CXR: neg
--- NOTE | 2024-01-21 09:41 | W.PN.HOSP.TC ---
Today's Communication/Plan
-
Stable for telemetry
Assessment / Plan
Assessment / Plan
HPI: 58-year-old male with history of IV drug use/skin popping methamphetamine last use about 2 weeks ago who presented to the ER last night due to 1 week history of fever. He reports not feeling well for about a week with his subjective fevers,
chills, diffuse abdominal pain and nausea.
Septic shock -source unclear but rule out bacteremia related to IV drug abuse. 1 out of 2 blood cultures positive for coag negative staph, contamination. ID following, recommend discontinuing cefepime. Status post doxycycline for 4 days.. Babesia
smear neg. Lyme neg. Anaplasma, ehrlichia neg. Off of Levophed after increasing midodrine 10 mg 3 times daily. Reports his blood pressure always runs low.
Mild transaminitis -patient does have hepatic stenosis, HCV antibody negative, check HepB core IgM and total, surface Ag and Ab, check abdominal ultrasound
Acute HIV -appreciate ID input, HIV viral load greater than 10,000,000 copies. Patient informed of HIV status. Started Biktarvy 1 tab daily 01/20. Check HAV, RPR.
Substance abuse without dependency-known history of IV drug abuse, inhalation use of methamphetamine. Urine drug screen positive for methamphetamines. Patient not interested in substance rehab.
Abdominal pain -CT abdomen pelvis with IV contrast on 01/16/2024 negative, shows hepatic steatosis. Check abdominal ultrasound.
Pancytopenia -etiology unclear but could be due to sepsis, etc. Counts are slowly improving.
Hyponatremia -present on admission, resolved.
Hepatic steatosis�outpatient follow-up with GI recommended
DVT prophylaxis�subcu Lovenox
Full code
Total time spent to see the patient on the floor, examine the patient, review data and lab results, discuss treatment plan with patient, nursing staff around 51 minutes.
Physical Exam
General: No acute distress
HEENT: Normocephalic, Atraumatic, EOMI, MMM
Respiratory: Clear to Auscultation bilaterally
Cardiac: Normal S1/S2, Regular Rate and Rhythm
GI: Soft, tender, distended, Normal Bowel Sounds
Extremities: No Clubbing, Cyanosis, or Edema
Neuro: Nonfocal/Grossly Intact
Psych: Calm, Cooperative
Derm: No Visible lesions
Anticipated Discharge: 24 - 48 hours
Subjective/Interval History
-
Date of Service: January 21, 2024
Patient complains of abdominal pain, better with food. No nausea, no vomiting. No constipation, no diarrhea. Continues to report report a headache with photophobia. No fever. No lightheadedness.
Objective Data
-
Labs:
Laboratory Results
01/21/24
03:20
WBC 4.2 L
Hgb 11.9 L
Hct 34.9 L
Plt Count 226
Sodium 138
Potassium 4.2
Chloride 105
Carbon Dioxide 23
BUN 12
Creatinine 0.7
Glucose 91
Calcium 8.2 L
Total Bilirubin 0.3
AST 98 H
ALT 111 H
Alkaline Phosphatase 150 H
Vital Signs:
Vital Signs
Temp Pulse Resp BP Pulse Ox
98.4 F 78 13 92/58 96
01/21/24 08:00 01/21/24 08:39 01/21/24 08:00 01/21/24 08:39 01/21/24 03:28
I&O
01/20/24 01/21/24 01/22/24
06:59 06:59 06:59
Intake Total 2802.5 / 2810.0 1447.5 / 1447.5 0 / 0
Output Total 1525 / 1525 850 / 850
Balance 1277.5 / 1285.0 597.5 / 597.5 0 / 0
[2024-01-21] MEDS: BIKTARVY 50-200-25 MG TABLET 1 TABLET PO (11:56)
[2024-01-21] MEDS: ROXICODONE 10 MG PO ×2 (12:56→17:10)
[2024-01-21] MEDS: SENOKOT-S PO ×2 (13:01→22:23)
--- NOTE | 2024-01-21 13:09 | PTCARENOTE ---
seen by Dr Cleveland, awaiting tele bed. initially refused lunch but then agreed to eat. agreed to oxycodone, pain level 8-9, med with 10 mg. nearly threw soda from meal tray, 'if this doesn't come with Robi Nava, get it TF away from me.' offered
support, aware of plans, took scheduled meds, denies need for stool softener at this time.
--- NOTE | 2024-01-21 15:08 | CM ---
CM following re: discharge planning.
Reviewed pt's chart.
Disposition remains unchanged, pt will go to friend's house at: [address], [place]. Per DANYELL Puente, pt will come to that address and pt will need transportation at discharge.
Pt's SO stated that their 12 year old son stays at his school friend house and [facility] is involved.
CM will check with pt's insurance [employer] to get an auth for transportation at discharge.
D/C plan: home to friend's house and family support.
CM will follow with discharge plan updates as hospitalization progresses
--- NOTE | 2024-01-21 15:48 | PTCARENOTE ---
Overheard through closed doors extreme anger, yelling and profane on phone. Calm when approached, requested if anything was needed, mumbling, asked for clarification, angry, 'Nothing a [place] 47 won't fix'. Denies an active plan. Rambling speech
about smashing all the windows at (some) house. VS noted, ambulated steadily to bathroom, returned self to bed, gait steady. Rang again for assistance fixing pillowcase back onto pillow.
[2024-01-21] MEDS: LOVENOX SC (17:48)
--- NOTE | 2024-01-21 22:00 | PTCARENOTE ---
Pt reports having headache 12/09. Pt refusing current pain medication that is ordered. Pt reports ' that shit messes up my stomach'. Pt educated on bowel regimen that is ordered to help prevent abd complications related to pain medication. Pt
refused ordered bowel regimen. Pt agreeable to CHG wipes and new gown. Assistance provided. PT also allowed new heart monitor stickers to be applied as some were falling off. Pt continued to refuse any type of oral care, even despite offering while
sitting in bed. Odor still persists. Pt stating 'F' this and 'F' that. Emotional support provided. All lights turned off per pt request. No medications administered per pt refusal. Will continue to monitor.
--- NOTE | 2024-01-21 23:33 | PTCARENOTE ---
Pt angry, ripped everything off. Walked to bathroom cursing. Pt stating ' I need to get the hell out of here, I will be back in the morning'. Pt educated on leaving AMA. Pt able to calm down and settle back in bed. Emotional support provided. Will
monitor.
[2024-01-22 04:36] VITALS: BP 100/68
[2024-01-22 04:47] LABS: Hematocrit 35.3 % (39.0-52.0); Hemoglobin 12.2 g/dL (13.0-18.0); Mean Corp Hgb Conc. 34.6 g/dL (33.0-37.0); Mean Corpuscular Hgb 30.5 pg (27.0-31.0); Mean Corpuscular Volume 88.3 fL (80.0-94.0); Mean Platelet Volume 9.4 fL (7.4-10.4); Platelet Count 236 10^3/uL (130-400); Red Cell Dist. Width 13.6 % (11.5-14.5); White Blood Cell Count 4.7 10^3/uL (4.8-10.8)
[2024-01-22 05:20] LABS: ALT (SGPT) 122 U/L (0-50); AST (SGOT) 84 U/L (17-59); Albumin 3.5 g/dl (3.5-5.0); Alkaline Phosphatase 163 U/L (38-126); Blood Urea Nitrogen 11 mg/dl (9-20); Calcium 8.5 mg/dl (8.4-10.2); Carbon Dioxide 22 mmol/L (22-30); Chloride 101 mmol/L (98-107); Estimated Creatinine Clearance 103 ml/min; Glucose 90 mg/dl (70-99); Potassium 4.2 mmol/L (3.5-5.1); Sodium 136 mmol/L (135-145); Total Bilirubin 0.4 mg/dl (0.2-1.3); Total Protein 6.3 g/dl (6.3-8.2); eGFR > 60.00
--- NOTE | 2024-01-22 08:00 | PTCARENOTE ---
Received pt side lying in his dark quiet room. He is turning side to side in the bed. He is ill appearing and informed of the plan of care. We discussed options for analgesia for his headache, that he allowed to sit in the recliner chair. He also
stated his shoulders were sore and requested a heating pad. He also verbalized that he has a sensitive stomach and Motrin will upset his stomach. I encouraged him to take the Protonix. Right upper arm DL PICC capped, flushed and patent. Extremities
are flushed, warm with good pulses. He stated he did not need the stool softener because he had a large BM yesterday and will more than likely go again today. Currently he is NPO for Abdominal U/S in which I already called for him. Abdomen round,
tender in right upper quadrant to palpation. Voiding in the BR. He was informed that I need a urine and stool specimen. He refuses SCD's due to using the BR frequently. Safe environment maintained.
--- NOTE | 2024-01-22 08:52 | W.PN.HOSP.TC ---
Today's Communication/Plan
-
see bold
Assessment / Plan
Assessment / Plan
HPI: 58-year-old male with history of IV drug use/skin popping methamphetamine last use about 2 weeks ago who presented to the ER last night due to 1 week history of fever. He reports not feeling well for about a week with his subjective fevers,
chills, diffuse abdominal pain and nausea.
Acute HIV infection status: HIV + no history of associated opportunistic infection -appreciate ID input, HIV viral load greater than 10,000,000 copies. Patient informed of HIV status. Started Biktarvy 1 tab daily 01/20.
Septic shock -source unclear but rule out bacteremia related to IV drug abuse. 1 out of 2 blood cultures positive for coag negative staph, contamination. ID following, recommend discontinuing cefepime. Status post doxycycline for 4 days. Babesia
smear neg. Lyme neg. Anaplasma, ehrlichia neg. Off of Levophed after increasing midodrine 10 mg 3 times daily. Reports his blood pressure always runs low.
Abdominal pain -CT abdomen pelvis with IV contrast on 01/16/2024 negative, shows hepatic steatosis. Abdominal ultrasound shows fatty infiltration of the liver, patent vasculature
Mild transaminitis -patient does have hepatic stenosis, HCV antibody negative, appreciate GI input, follow-up on hepatitis serologies
Substance abuse without dependency-known history of IV drug abuse, inhalation use of methamphetamine. Urine drug screen positive for methamphetamines. Patient not interested in substance rehab.
Pancytopenia -etiology unclear but could be due to sepsis, etc. Counts are slowly improving.
Hyponatremia -present on admission, resolved.
Hepatic steatosis�outpatient follow-up with GI recommended
Headache with photophobia�trial of maxalt & compazine x 1
DVT prophylaxis�subcu Lovenox
Full code
Total time spent to see the patient on the floor, examine the patient, review data and lab results, discuss treatment plan with patient, nursing staff around 52 minutes.
Physical Exam
General: No acute distress
HEENT: Normocephalic, Atraumatic, EOMI, MMM
Respiratory: Clear to Auscultation bilaterally
Cardiac: Normal S1/S2, Regular Rate and Rhythm
GI: Soft, tender, distended, Normal Bowel Sounds
Extremities: No Clubbing, Cyanosis, or Edema
Neuro: Nonfocal/Grossly Intact
Psych: Calm, Cooperative
Derm: No Visible lesions
Anticipated Discharge: 24 - 48 hours
Subjective/Interval History
-
Date of Service: January 22, 2024
Patient complains of headache and abdominal pain. No nausea, no vomiting. No constipation. No fever.
Objective Data
-
Labs:
Laboratory Results
01/22/24
04:35
WBC 4.7 L
Hgb 12.2 L
Hct 35.3 L
Plt Count 236
Sodium 136
Potassium 4.2
Chloride 101
Carbon Dioxide 22
BUN 11
Creatinine 0.8
Glucose 90
Calcium 8.5
Total Bilirubin 0.4
AST 84 H
ALT 122 H
Alkaline Phosphatase 163 H
Vital Signs:
Vital Signs
Temp Pulse Resp BP Pulse Ox
98.7 F 85 14 100/68 95
01/22/24 04:00 01/22/24 04:36 01/22/24 04:36 01/22/24 04:36 01/21/24 22:07
I&O
01/21/24 01/22/24 01/23/24
06:59 06:59 06:59
Intake Total 1447.5 / 1447.5 960 / 960
Output Total 850 / 850
Balance 597.5 / 597.5 960 / 960
[2024-01-22 09:00] VITALS: BP 99/70
[2024-01-22] MEDS: PROTONIX 40 MG PO (09:04)
[2024-01-22] MEDS: ProAmatine 10 MG PO ×3 (09:04→16:58)
[2024-01-22] MEDS: SENOKOT-S PO ×2 (09:05→20:24)
--- NOTE | 2024-01-22 09:40 | W.PN.ID1 ---
Addendum entered and electronically signed by Yamil Kang, DO 01/22/24 14:38:
I saw and evaluated the patient. I reviewed the resident�s note and agree with findings and plan as documented in the resident�s note.
Pt still with BLEVINS, otherwise no other complaints.
Continue Biktarvy.
Check Genotype
Original Note:
Date of Service
Date of Service: January 22, 2024
Today's Communication
.
Assessment / Plan
# Acute HIV
# IVDU/skin popper
# High risk sexual behavior -bisexual with multiple partners without barrier protection use.
- HIV ag/Ab reactive; HIV1 Ab negative, HIV2 Ab negative.
HIV viral load >10,000,000 copies
-CD4 358 (32%)
- Started Biktarvy 1 tab daily on 01/20.
-zero suspicion for opportunistic INSECT CONTROL AIDE infection as CD4 32%
# Rising transaminases
- CT a/p + hepatic steatosis
-HCV Ab negative.
- HepB core IgM and total, surface Ag and Ab pending
- Check HAV as part of HIV screening test, currently pending.
- Check RPR
- HCV Ab negative
Chief Complaint
-: Other
Vital Signs / Physical Exam
Vital Signs
Vital Signs
Temp Pulse Resp BP Pulse Ox
98.7 F 83 27 99/70 95
01/22/24 04:00 01/22/24 09:04 01/22/24 08:30 01/22/24 09:04 01/21/24 22:07
Physical Exam
Constitutional: No Acute Distress
Cardiovascular: Regular Rate and S1/S2
Gastrointestinal: Soft, Non Tender and Non Distended
Neurological: AO x 3
Objective Data
Lab Data
Lab Results
01/22/24 04:35
01/22/24 04:35
Estimated Creat Clear 103 ml/min 01/22/24 04:35
Lactic Acid 1.1 mmol/L (0.7-2.0) 01/16/24 00:36
Total Bilirubin 0.4 mg/dl (0.2-1.3) 01/22/24 04:35
AST 84 U/L (17-59) H 01/22/24 04:35
ALT 122 U/L (0-50) H 01/22/24 04:35
Alkaline Phosphatase 163 U/L (38-126) H 01/22/24 04:35
Most recent labs reviewed.
Micro Results:
01/17/24 09:05 Blood Culture - Final
Blood/Venous No Growth - Final Report
01/16/24 02:24 Blood Culture - Final
Blood/Venous Coagulase neg. staphylococcus
Additional testing on request
Gram Stain - Final
01/16/24 02:54 Blood Culture - Final
Blood/Venous No Growth - Final Report
01/17/24 03:49 Blood Parasites Smear - Final
Blood/Venous
01/16/24 00:36 Influenza Types A & B (DEMETRA) - Final
Nasal Swab Negative for Influenza A & B, NAAT
Negative results must be combined with clinical observations
and patient history.
Nucleic Acid Amplification test (NAAT)performed on the
Melophone platform.
01/16/24 CT a/p: No acute findings in the abdomen or pelvis.Hepatic steatosis.Punctate nonobstructing stone in the inferior pole the right kidney.
01/16/24 CXR: neg
[2024-01-22] MEDS: BIKTARVY 50-200-25 MG TABLET 1 TABLET PO (09:42)
[2024-01-22 11:33] LABS: Hepatitis B Surface Antigen Negative (Negative)
[2024-01-22 11:51] LABS: Hepatitis B Core Ab, Total Negative (Negative); Hepatitis B Surface Antibody Negative
[2024-01-22 12:22] LABS: Syphilis/T. pallidum Ab Reflex Positive (Negative)
--- NOTE | 2024-01-22 12:30 | PTCARENOTE ---
With the pt's permission Cindi was provided an update. She is aware we will be transferring him to 2123.
--- NOTE | 2024-01-22 13:07 | CM ---
CM following re: discharge planning.
Reviewed pt's chart.
Disposition remains unchanged, pt will go to friend's house at: [address], [place].
Pt will need transportation at discharge.
Pt's SO stated that their 12 year old son stays at his school friend house and [facility] is involved.
CM will check with pt's insurance [employer] to get an auth for transportation at discharge.
D/C plan: home to friend's house and family support.
CM will follow with discharge plan updates as hospitalization progresses
--- NOTE | 2024-01-22 14:29 | CON.GI ---
Consultation
-
Date/Time Consultation Requested: 01/22/24
Date/Time Consultation Performed: 01/22/24
Requesting Provider: Dr. Cleveland
Performing Provider: Dr. Hooks
Reason for Consultation: Elevated Liver Enzymes
Medical History
Chief Complaint / HPI
Chief Complaint: Elevated LFTs
History of Present Illness:
Yamil Moore is a 58 y.o. male with past medical history of IVDU (methamphetamine), last used 2 weeks ago who was admitted to on 01/15 with complaints of generalized malaise, abdominal pain, nausea and subjective fever/chills x1 week. On
arrival, he was febrile with a Tmax of 101, leukopenic and thrombocytopenic. He was empirically stated on broad spectrum antibiotics (vanc + cefepime). Initial BCx returne with GPC bacteremia in 1/2 sets, felt to be a contaminant. His LFTs started
to rise on 01/16, at which time he was started on empiric doxycycline to cover for tickborne disease; cefepime was discontinued. He required pressor support for a brief period with levophed. Tickborne disease was ruled out, doxycycline was
discontinued on 01/19. GI is consulted for elevated liver enzymes with unclear etiology. They were normal on admission. CT scan shows hepatic steatosis; US w/ doppler showed fatty infiltration of the liver with portal vein patency.
He currently offers no complaints, he is tired, but otherwise from a GI perspective, asymptomatic at this time. He denies family history of liver disease/cancer or other GI malignancy. Denies regular eetoh use or regular use of tylenol or NSAIDs. No
herbal supplements. Denies abx prior to admission. No prior EGD or Colonoscopy.
Syphilis positive, RPR pending
HAV Ab Total pending; HBsAg neg, HBsAb neg, HBcAb IgG neg, HBcAb IgM pending
HCV Ab neg
HIV positive, VL >10,000,00; CD4 count 358 (32%)
Tickborne disease work-up: Babesia smear negative. Lyme negative. anaplasma, ehrlichia serology negative.
LFTs on admission (01/16/24):
AST 58 --> 75 (01/17) --> 98 --> 84
ALT 37 --> 52 --> 79 --> 111 --> 122 (previously elevated in the 60s back in 2022, up to 138 in 2014)
Alk phos 62 --> 150 --> 163
Tbili 0.4 --> 0.6 --> 0.4
01/16/24 CT a/p: No acute findings in the abdomen or pelvis.Hepatic steatosis.Punctate nonobstructing stone in the inferior pole the right kidney.
UDS + Methamphetamines
Past Medical History
Past Medical History: Other (IV Drug Abuse)
Past Surgical History: Other (History of MRSA s/p debridement (2022), Left Knee arthroscopic surgery )
Social History
Tobacco: Former Smoker
Drug: IVDA
Employment: Employed
Family History
Family History: Reviewed & Not Pertinent
Allergies / Home Medications
Allergy/AdvReac Type Severity Reaction Status Date / Time
No Known Allergies Allergy Verified 01/16/24 00:00
�Medication �Instructions �Recorded
No Meds [No Current Medications] 01/16/24
Review of Systems
-
History Source: Patient
All other systems: A 12 pt ROS was Negative except as stated above in HPI
Vital Signs
Temp Pulse Resp BP Pulse Ox
98.1 F 79 15 99/70 97
01/22/24 11:23 01/22/24 12:00 01/22/24 09:41 01/22/24 09:04 01/22/24 08:40
Physical Exam
Exam
GENERAL: In no acute distress, appears comfortable
ABDOMEN: +BS; soft, non-tender and non-distended; no rebound or guarding
Results
WBC 4.7 10^3/uL (4.8-10.8) L 01/22/24 04:35
Hgb 12.2 g/dL (13.0-18.0) L 01/22/24 04:35
Hct 35.3 % (39.0-52.0) L 01/22/24 04:35
MCV 88.3 fL (80.0-94.0) 01/22/24 04:35
Plt Count 236 10^3/uL (130-400) 01/22/24 04:35
Absolute Neuts (auto) 2.7 10^3/uL (1.4-6.5) 01/19/24 03:29
Sodium 136 mmol/L (135-145) 01/22/24 04:35
Potassium 4.2 mmol/L (3.5-5.1) 01/22/24 04:35
Chloride 101 mmol/L (98-107) 01/22/24 04:35
Carbon Dioxide 22 mmol/L (22-30) 01/22/24 04:35
BUN 11 mg/dl (9-20) 01/22/24 04:35
Creatinine 0.8 mg/dL (0.7-1.3) 01/22/24 04:35
Calcium 8.5 mg/dl (8.4-10.2) 01/22/24 04:35
Total Bilirubin 0.4 mg/dl (0.2-1.3) 01/22/24 04:35
AST 84 U/L (17-59) H 01/22/24 04:35
ALT 122 U/L (0-50) H 01/22/24 04:35
Alkaline Phosphatase 163 U/L (38-126) H 01/22/24 04:35
Lipase 80 U/L (23-300) 01/16/24 05:40
Hep Bs Antibody Negative 01/22/24 04:35
Hep B Core Total Ab Negative (Negative) 01/22/24 04:35
Hepatitis C Antibody Negative (Negative) 01/18/24 04:28
Diagnostic Image Results:
Prior GI Procedures:
EGD:
Colonoscopy:
Assessment / Plan
-
58 y.o. male with history of IVDA admitted with 1 week of fever/chills/malaise found to have new diagnosis of HIV with hospital course c/b elevated liver enzymes.
#Acute Liver Injury, Hepatocellular pattern-- normal LFTs on admission; DDx DILI vs. GB/biliary vs. shock liver vs. infectious vs. autoimmune vs. infiltrative
-LFTs today: Tbili 0.4, Alk phos 163, ALT 122, AST 84; coags normal
-acetaminophen level neg
-HAV IgG total pending, HBcAb IgM pending (HBsAg and HBcAb total negative); check HAV IgM* however, typically acute HAV yields much higher elevations in transaminases (>1,000)
-CT A/P shows hepatic steatosis
-US w/ dopplers shows fatty infiltration in the liver and patent vasculature
-new diagnosis of HIV, started on Biktarvy, CD4 count 358
-Received Vanc, Cefepime and Doxy-- atypical to have such an acute rise after less than 48 hours of therapy; doxy not known to cause drug-induced autoimmune (as opposed to minocycline)
-Pattern inconsistent with shock liver
-no concerns for acute liver failure
-no concern for aids cholangiopathy at this time-- CD4 count is 358 and this manifests with marked cholestatic injury
Recommendations:
-check ceruloplasmin
-check salicylate level
-check HAV IgM
-If HBcAb IgM returns positive, check hepatitis D serology
-if no improvement in AM labs, check MRI/MRCP
Data Reviewed
-
CT Scan: Report Reviewed by me
Ultrasound: Report Reviewed by me
-
-
Thank you for consultation and allowing me to participate in the patient's care. Please call the [facility] GI physician during the after hours with any questions or concerns.
[2024-01-22 14:32] VITALS: BP 92/57
[2024-01-22] MEDS: FIORICET 2 TAB PO (14:34)
[2024-01-22 14:46] LABS: Hepatitis A Antibody, Total Negative (Negative)
[2024-01-22 14:55] LABS: RPR, Progressive Reactive (NonReactive)
[2024-01-22 15:00] VITALS: BP 90/50
--- NOTE | 2024-01-22 15:14 | TRANSFER ---
Report given to Mary DOMINGUEZ. She is aware pt has add on labs tomorrow morning that will require #4 lavendar tubes. Pt to be transported w/tele.
--- NOTE | 2024-01-22 15:18 | PTCARENOTE ---
Diana the pt's Leeanna' [phone] is aware he is being moved to room 333.
[2024-01-22 15:44] LABS: Salicylate < 1.0 mg/dl (2.0-20.0)
--- NOTE | 2024-01-22 15:45 | PTCARENOTE ---
pt transferred from ICU AOx3, able to make needs known. c/o headache. quiet dark room provided. CB in reach. lCTA b/l on RA NSR. abd soft NT xbsx4 cont b&B. skin CDI, +pp b/l no edema. CB in reach
--- NOTE | 2024-01-22 15:47 | PN.CDI ---
CDI
- -
CDI:
Physician Documentation Request
Admit Date: 01/16/24 03:37
Dear Doctor Do,
Patient admitted for management of septic shock.
Progress notes include 'acute HIV...HIV viral load greater than 10,000,000 copies'
Laboratory Tests
01/18/24
04:28
% CD4 Cells 32
Absolute CD4 Count 358 L
Please clarify further specificity regarding the patient's HIV status:
Asymptomatic HIV infection status: HIV + no history of associated opportunistic infection
HIV disease: (AIDS, AIDS related complex (ARC) HIV infection, symptomatic)
Other
Use of terms such as suspected, likely, concern for, or probable (associated with a specific diagnosis that is being evaluated, monitored, or treated as if it exists) are acceptable and can be coded in the inpatient setting, when documented at the
time of discharge.
Thank you,
Savannah Cook RN, BSN
CDI Specialist
tiger text
Please use your independent medical judgment in providing your response.
[2024-01-22] MEDS: COMPAZINE 10 MG IV (16:43)
[2024-01-22] MEDS: MAXALT MLT (ORALLY DISINTEGRATING) 10 MG PO (16:43)
[2024-01-22] MEDS: LOVENOX 40 MG SC (16:57)
--- NOTE | 2024-01-22 17:53 | VATNOTE ---
01/21 Patient downgraded to med-surg from ICU. RT DL PICC D/C order obtained since there is no medical need for it. Exchanged PICC to 4Fr SL Midline given patient is a difficult IV stick. Maintained sterile technique during procedure. Patient was
partially cooperative- agreeable to exchange, however continuous redirecting to stay still will needed. TCL 17cm ECL0 UAC 31cm. Midline needs to be redressed tomorrow with biopatch.
[2024-01-22 19:45] VITALS: BP 88/51
[2024-01-22 23:38] VITALS: BP 82/57
[2024-01-23] VITALS (7 sets, daily range): BP systolic 88–95; BP diastolic 45–58
--- NOTE | 2024-01-23 08:01 | W.PN.HOSP.TC ---
Today's Communication/Plan
-
Possible discharge tomorrow
Assessment / Plan
Assessment / Plan
HPI: 58-year-old male with history of IV drug use/skin popping methamphetamine last use about 2 weeks ago who presented to the ER last night due to 1 week history of fever. He reports not feeling well for about a week with his subjective fevers,
chills, diffuse abdominal pain and nausea.
Acute HIV infection status: HIV + no history of associated opportunistic infection -appreciate ID input, HIV viral load greater than 10,000,000 copies. Patient informed of HIV status. Started Biktarvy 1 tab daily 01/20.
Septic shock -source unclear but rule out bacteremia related to IV drug abuse. 1 out of 2 blood cultures positive for coag negative staph, contamination. ID following, recommend discontinuing cefepime. Status post doxycycline for 4 days. Babesia
smear neg. Lyme neg. Anaplasma, ehrlichia neg. Off of Levophed after increasing midodrine 10 mg 3 times daily. Reports his blood pressure always runs low.
Abdominal pain -CT abdomen pelvis with IV contrast on 01/16/2024 negative, shows hepatic steatosis. Abdominal ultrasound shows fatty infiltration of the liver, patent vasculature. Check abdominal x-ray to rule out constipation.
Mild transaminitis -patient does have hepatic stenosis, HCV antibody negative, Hep A/B/C negative, likely viral related with baseline hepatic steatosis. Seen by GI, they have signed off.
Substance abuse without dependency-known history of IV drug abuse, inhalation use of methamphetamine. Urine drug screen positive for methamphetamines. Patient not interested in substance rehab.
Pancytopenia -etiology unclear but could be due to sepsis, etc. Counts are slowly improving.
Hyponatremia -present on admission, resolved.
Hepatic steatosis�outpatient follow-up with GI recommended
Headache with photophobia�check head CT for completeness sake, Maxalt as needed
DVT prophylaxis�subcu Lovenox
Full code
Total time spent to see the patient on the floor, examine the patient, review data and lab results, discuss treatment plan with patient, nursing staff around 50 minutes.
Physical Exam
General: No acute distress
HEENT: Normocephalic, Atraumatic, EOMI, MMM
Respiratory: Clear to Auscultation bilaterally
Cardiac: Normal S1/S2, Regular Rate and Rhythm
GI: Soft, tender, distended, Normal Bowel Sounds
Extremities: No Clubbing, Cyanosis, or Edema
Neuro: Nonfocal/Grossly Intact
Psych: Calm, Cooperative
Derm: No Visible lesions
Anticipated Discharge: Within 24 hours
Subjective/Interval History
-
Date of Service: January 23, 2024
Complains of headache and abdominal pain. Also complains of photophobia. No fever, no vomiting.
Objective Data
-
Labs:
Laboratory Results
01/23/24
07:51
Sodium Pending
Potassium Pending
Chloride Pending
Carbon Dioxide Pending
BUN Pending
Creatinine Pending
Glucose Pending
Calcium Pending
Total Bilirubin Pending
AST Pending
ALT Pending
Alkaline Phosphatase Pending
Vital Signs:
Vital Signs
Temp Pulse Resp BP Pulse Ox
99.1 F 79 18 91/56 95
01/23/24 03:56 01/23/24 03:56 01/23/24 03:56 01/23/24 03:56 01/23/24 03:56
I&O
01/22/24 01/23/24 01/24/24
06:59 06:59 06:59
Intake Total 960 / 960 360 / 360
Balance 960 / 960 360 / 360
[2024-01-23 08:28] LABS: ALT (SGPT) 116 U/L (0-50); AST (SGOT) 68 U/L (17-59); Albumin 3.6 g/dl (3.5-5.0); Alkaline Phosphatase 155 U/L (38-126); Blood Urea Nitrogen 14 mg/dl (9-20); Calcium 8.5 mg/dl (8.4-10.2); Carbon Dioxide 26 mmol/L (22-30); Chloride 103 mmol/L (98-107); Estimated Creatinine Clearance 92 ml/min; Glucose 93 mg/dl (70-99); Potassium 4.4 mmol/L (3.5-5.1); Sodium 139 mmol/L (135-145); Total Bilirubin 0.4 mg/dl (0.2-1.3); Total Protein 6.5 g/dl (6.3-8.2); eGFR > 60.00
[2024-01-23] MEDS: SENOKOT-S 2 TABLET PO ×2 (08:45→21:47)
[2024-01-23] MEDS: MOTRIN 600 MG PO (08:45)
[2024-01-23] MEDS: PROTONIX 40 MG PO (08:45)
--- NOTE | 2024-01-23 10:00 | PTCARENOTE ---
PT had a very large solid pale cream/ durham solid formed BM
[2024-01-23] MEDS: BIKTARVY 50-200-25 MG TABLET 1 TABLET PO (10:39)
[2024-01-23] MEDS: ProAmatine 10 MG PO ×3 (10:39→16:21)
--- NOTE | 2024-01-23 10:42 | PTCARENOTE ---
PT very agitated and grumpy. emotional support attempted to be given. pt not interested in engaging with me. Gave pt HIV medication. Education was given on the medication, SE , education given on HIV, safe sex practices. Pt verbalized an
understanding
--- NOTE | 2024-01-23 13:04 | W.PN.GI.CBS2 ---
Today's Communication / Plan
-
Unclear cause of LFTs elevations suspect viral related. However given improvement and unremarkable Abd US, CTAP would not pursue further liver workup inpatient.
Recommend OP FU with GI and consideration of fibroscan
Will sign off please call for questions
Assessment / Plan
-
58 y.o. male with history of IVDA admitted with 1 week of fever/chills/malaise found to have new diagnosis of HIV with hospital course c/b elevated liver enzymes.
Impression
- Acute Liver Injury, Hepatocellular pattern-
May be virally related with baseline hepatic steatosis
Other consideration is also drug induced liver injury
- HIV
- + RPR
- h/o IVDU
Recommendations:
- LFTs downtrending
- Abd US and CTAP without biliary dilation
- Hep A/B/C negative
- Hereditary liver workup thus far pending and may not return on this admission
- At this juncture no further GI workup indicated in patient. He can FU with me OP to consider fibroscan
- Appreciate ID recommendations
No new recs GI will sign off please call for ?
Subjective
Subjective
Date of Service: January 23, 2024
He denies abd pain, nausea or vomiting. Tolerating diet
Objective
Data Reviewed
Laboratory Data:
Laboratory Results
01/22/24 04:35
01/23/24 07:51
Laboratory Results
Phosphorus 3.2 mg/dl (2.5-4.5) 01/21/24 03:20
Magnesium 2.0 mg/dl (1.6-2.3) 01/21/24 03:20
Total Bilirubin 0.4 mg/dl (0.2-1.3) 01/23/24 07:51
AST 68 U/L (17-59) H 01/23/24 07:51
ALT 116 U/L (0-50) H 01/23/24 07:51
Alkaline Phosphatase 155 U/L (38-126) H 01/23/24 07:51
Lipase 80 U/L (23-300) 01/16/24 05:40
Vital Signs and I&O:
Vital Signs
Temp Pulse Resp BP Pulse Ox
98.1 F 65 22 90/54 97
01/23/24 08:33 01/23/24 08:33 01/23/24 08:33 01/23/24 08:33 01/23/24 08:33
I&O
01/22/24 01/23/24 01/24/24
06:59 06:59 06:59
Intake Total 960 / 960 360 / 360
Balance 960 / 960 360 / 360
Physical Exam
Physical Exam
GEN: No acute distress, conversant chronically ill appearing
HEENT: anicteric, extraocular movements intact, clear oropharynx without exudates
GI: soft, non-distended, not tender to palpation, normal active bowel sounds, no hepatosplenomegaly
EXT: warm, well perfused, trace edema bilaterally
NEURO: AAOx3, non-focal
[2024-01-23] MEDS: LOVENOX 40 MG SC (16:21)
--- NOTE | 2024-01-23 17:00 | PTCARENOTE ---
pt had multiple BM in room by self. i did not see the stool
[2024-01-23] MEDS: DILAUDID 2 MG PO (17:52)
[2024-01-23] MEDS: DILAUDID 4 MG PO (22:04)
[2024-01-24 03:26] VITALS: BP 89/43
--- NOTE | 2024-01-24 04:48 | PTCARENOTE ---
Informed from PCT that pt had removed his foot off WC while pt was being returned back to room after abd xr and it struck the door. PCT relayed that pt c/o pain in foot, was very irate, but no injury noted after placing pt back in bed. This RN
attempted to assess pt when pt became verbally abusive, shouting obscenities. This RN explained to pt that once the pt could interact appropriately his foot would be examined and reported to BLOW MOULDING MACHINE OPERATOR. Nurse Child And Family Counselor overheard interaction and
reiterated expectations. Pt agreed and foot was examined by this RN. No injury, swelling or redness noted. pt could move toes, but expressed pain when moving right second toe. Pt given ice and BLOW MOULDING MACHINE OPERATOR contacted. BLOW MOULDING MACHINE OPERATOR also noted the same as RN. Pt to
keep toe iced and XR of foot ordered for am.
[2024-01-24 07:42] VITALS: BP 137/76
--- NOTE | 2024-01-24 08:36 | W.PN.HOSP.TC ---
Today's Communication/Plan
-
Cleared by ID for discharge today
Assessment / Plan
Assessment / Plan
HPI: 58-year-old male with history of IV drug use/skin popping methamphetamine last use about 2 weeks ago who presented to the ER last night due to 1 week history of fever. He reports not feeling well for about a week with his subjective fevers,
chills, diffuse abdominal pain and nausea.
Acute HIV infection status: HIV + no history of associated opportunistic infection -appreciate ID input, HIV viral load greater than 10,000,000 copies. Patient informed of HIV status. Started Biktarvy 1 tab daily 01/20. Cleared by ID for
discharge today.
Septic shock -source unclear but rule out bacteremia related to IV drug abuse. 1 out of 2 blood cultures positive for coag negative staph, contamination. ID following, recommend discontinuing cefepime. Status post doxycycline for 4 days. Babesia
smear neg. Lyme neg. Anaplasma, ehrlichia neg. Off of Levophed after increasing midodrine 10 mg 3 times daily. Reports his blood pressure always runs low. Continue midodrine upon discharge.
Abdominal pain -CT abdomen pelvis with IV contrast on 01/16/2024 negative, shows hepatic steatosis. Abdominal ultrasound shows fatty infiltration of the liver, patent vasculature. Abdominal x-ray negative for constipation.
Mild transaminitis -patient does have hepatic stenosis, HCV antibody negative, Hep A/B/C negative, likely viral related with baseline hepatic steatosis. Seen by GI, they have signed off.
Substance abuse without dependency-known history of IV drug abuse, inhalation use of methamphetamine. Urine drug screen positive for methamphetamines. Patient not interested in substance rehab.
Pancytopenia -etiology unclear but could be due to sepsis, etc. Counts are slowly improving.
Hyponatremia -present on admission, resolved.
Hepatic steatosis�outpatient follow-up with GI recommended
Headache with photophobia�head CT negative, suspect migraine, BLEVINS is improved from prior.
DVT prophylaxis�subcu Lovenox
Full code
Physical Exam
General: No acute distress
HEENT: Normocephalic, Atraumatic, EOMI, MMM
Respiratory: Clear to Auscultation bilaterally
Cardiac: Normal S1/S2, Regular Rate and Rhythm
GI: Soft, tender, distended, Normal Bowel Sounds
Extremities: No Clubbing, Cyanosis, or Edema
Neuro: Nonfocal/Grossly Intact
Psych: Calm, Cooperative
Derm: No Visible lesions
Anticipated Discharge: Today
Subjective/Interval History
-
Date of Service: January 24, 2024
Patient reports his headache and abdominal pain are 5 out of 10 in intensity. No fever, no vomiting. He wants to be discharged today.
Objective Data
-
Vital Signs:
Vital Signs
Temp Pulse Resp BP Pulse Ox
98.7 F 75 16 89/43 99
01/24/24 03:26 01/24/24 03:26 01/24/24 03:26 01/24/24 03:26 01/24/24 03:26
I&O
01/23/24 01/24/24 01/25/24
06:59 06:59 06:59
Intake Total 360 / 360 1260 / 1260
Balance 360 / 360 1260 / 1260
[2024-01-24] MEDS: PROTONIX 40 MG PO (08:45)
[2024-01-24] MEDS: SENOKOT-S 2 TABLET PO (08:45)
[2024-01-24] MEDS: ProAmatine 10 MG PO ×2 (08:45→12:44)
[2024-01-24] MEDS: BIKTARVY 50-200-25 MG TABLET 1 TABLET PO (08:51)
[2024-01-24 11:50] VITALS: BP 94/52
--- NOTE | 2024-01-24 12:07 | W.DCSUMMARY ---
Discharge Summary
Discharge Data
Date of Admission: 01/16/24
Date of Discharge: 01/24/24
-
Pending Results: No
Hospital Course
Discharge diagnosis:
Acute human immunodeficiency viral infection without any associated opportunistic infection
Septic shock due to the above
Abdominal pain
Mild transaminitis
Hepatic steatosis
Substance abuse without dependency
Pancytopenia
Hyponatremia
Headache with photophobia
Consults: ID, GI
Hospital course:
58-year-old male with a history of IV drug use/skin popping methamphetamine, last use about 2 weeks ago, was admitted for fever and hypotension concerning for septic shock. Patient was seen in conjunction with ID. He was initially treated with
cefepime and doxycycline. He also required Levophed. Workup for bacterial infection was negative. His cefepime and doxycycline were discontinued. He was weaned off of Levophed, and treated with midodrine 10 mg 3 times daily to maintain his blood
pressure. Patient reports his blood pressure always runs low. He can continue midodrine upon discharge to maintain his blood pressure.
Patient was found to have an acute HIV viral infection. He was informed of his diagnosis. ID started Biktarvy.
Patient has substance abuse. He declined going to substance rehab after discharge.
Patient complained of abdominal pain. CT of the abdomen and pelvis showed hepatic steatosis. Abdominal x-ray was negative for constipation. He was seen in conjunction with GI. He had mildly elevated liver function tests, likely from his viral
infection. GI recommends outpatient follow-up.
Patient complained of headache with photophobia. Head CT was negative for acute intracranial abnormality. He was treated with Maxalt.
Patient's multiple medical conditions have been optimized. He is medically stable and cleared by ID for discharge. He needs to follow-up with his primary care doctor in 1 week, as well as ID in the office as directed.
Disposition: Home self-care
Discharge planning: Required 45 minutes
Discharge Plan
-
Patient Disposition: Home (Routine Discharge)
Discharge Diagnosis/Procedures: Acute early HIV infection, sepsis, elevated liver function test, fatty liver, pancytopenia, substance abuse
Condition: Fair
Diet: Low Fat and Low Cholesterol
Activity: As tolerated
Driving Restrictions: As prior to admission
Activity Restrictions/Additional Instructions:
Please follow-up with the infection doctor as directed.
Establish care and follow-up with your primary care doctor as soon as possible.
Referrals:
PRIVATE,PHYSICIAN [Family Provider] -
Lina Hooks DO [Active] -
Radha Holm MD [Active] - in four to six weeks
Prescriptions:
New
Biktarvy 50-200-25 mg Tablet
1 tab PO DAILY Qty: 30 0RF
midodrine 10 mg tablet
10 mg PO TID Qty: 90 0RF
No Action
No Current Medications
0
Discharge Orders:
Discharge Patient (As Directed); Ordered 01/24/24
Ordered By: Guillermo Cleveland
Discharge Date and Time
Discharge Date/Time: 01/24/24 14:01
Print Language: GAMBIAN
--- NOTE | 2024-01-24 12:13 | CM ---
Addendum entered by TERE Keene 01/24/24 12:16:
Attending and RN updated.
Original Note:
Received med check cost request from attending for Biktarvy. Reviewed chart, Placed a call to [facility] in [place] # [phone] and spoke with a pharmacy picking technician named, Francisco, who ran the claim and stated that the cost for Biktarvy 50-200-25 mg Tab once
daily (30 day supply) is 0 dollars.
[2024-01-25 02:30] LABS: Ceruloplasmin 27 mg/dL (15-30)
== END 2024-01-24 14:01 | disposition home or self-care (01) | DRG 871 ==
LOC: 3 WEST ACU 03:37
PROVIDERS: Hospitalist; Internal Medicine Infectious Disease; Nurse Practitioner; Nurse Practitioner Family; Radiology Diagnostic Radiology; Student in an Organized Health Care Education/Training Program; ADMITTING PHYSICIAN Hospitalist; ATTENDING PHYSICIAN Family Medicine; CONSULT PHYSICIAN Internal Medicine Infectious Disease; EMERGENCY PHYSICIAN Emergency Medicine; OTHER PHYSICIAN Internal Medicine
PROC: 02HV33Z Insertion of Infusion Device into Superior Vena Cava, Percutaneous Approach (ICD-10-PCS; 2024-01-18)
DX: A41.9 Sepsis, unspecified organism (principal); R65.21 Severe sepsis with septic shock; Z59.01 Sheltered homelessness; E87.1 Hypo-osmolality and hyponatremia; R50.9 Fever, unspecified; F15.10 Other stimulant abuse, uncomplicated; D69.59 Other secondary thrombocytopenia; G89.29 Other chronic pain; M54.9 Dorsalgia, unspecified; R51.9 Headache, unspecified; K71.9 Toxic liver disease, unspecified; Z21 Asymptomatic human immunodeficiency virus [HIV] infection status; I95.9 Hypotension, unspecified; K76.0 Fatty (change of) liver, not elsewhere classified; A53.9 Syphilis, unspecified; Z72.53 High risk bisexual behavior; Z87.891 Personal history of nicotine dependence; Z86.14 Personal history of Methicillin resistant Staphylococcus aureus infection; Z83.3 Family history of diabetes mellitus; Z22.322 Carrier or suspected carrier of Methicillin resistant Staphylococcus aureus; Z11.52 Encounter for screening for COVID-19
CPT/HCPCS: 70450; 71045; 71046; 73630; 74018; 74177; 76700; 80048; 80053; 80179; 80306; 80307; 82248; 82390; 82533; 83605; 83690; 83735; 84100; 84145; 84443; 84484; 85025; 85027; 86361; 86592; 86593; 86618; 86666; 86701; 86702; 86704; 86706; 86708; 86780; 86803; 87015; 87040; 87070; 87150; 87205; 87207; 87340; 87389; 87491; 87502; 87536; 87591; 87811; 93005; 93306; 96361; 96374; 96375; 99285; Q9967